=== PATIENT | male | born 1960 | race Two or more races ===

== ENCOUNTER 2023-08-18 19:02 | Inpatient (IN) | payer MEDICAID, OTHER ==
[~2023-08-18] VITALS: Ht 170.2 cm; Wt 58.1 kg
[2023-08-18 20:18] LABS: Hematocrit 51.6 % (41.0-53.0); Mean Corpuscular Hemoglobin 29.3 pg (28.0-32.0); Mean Corpuscular Hgb Conc. 32.9 g/dL (32.0-36.0); Mean Corpuscular Volume 89.1 fL (80.0-100.0); Platelet Count (auto) 330 10^3/uL (140-450); Red Cell Distribution Width 15.6 % (11.8-14.3); White Blood Cell 18.2 10^3/uL (4.4-10.8)
[2023-08-18 20:25] LABS: Basophils % (manual) 0 (0.0-2.0); Blast Cells 0; Eosinophils % (manual) 0 (0-7); Metamyelocytes % 0; Myelocytes % 0; Promyelocytes % 0; Reactive Lymphocytes 0
[2023-08-18 20:43] LABS: Alanine Aminotransferase 35 U/L (7-40); Albumin 4.2 g/dL (3.2-4.8); Alkaline Phosphatase 111 U/L (46-116); Anion Gap 18 (5-15); Aspartate Aminotransferase 21 U/L (13-40); BUN/Creatinine Ratio 36.5 (10.0-20.0); Blood Urea Nitrogen 38 mg/dL (9-23); Calcium 9.1 mg/dL (8.7-10.4); Carbon Dioxide 15 mmol/L (20-30); Chloride 101 mmol/L (98-107); Glucose 353 mg/dL (74-106); Lipase 96 U/L (12-53); Potassium 3.8 mmol/L (3.5-5.1); Sodium 134 mmol/L (136-145)
[2023-08-18 20:44] LABS: Bilirubin, Total 0.5 mg/dL (0.2-1.0); Total Protein 7.3 g/dL (5.7-8.2)
[2023-08-18 21:00] VITALS: PULSE 137; RESP 22; O2SAT 93
[2023-08-18] MEDS: MORPHINE SULFATE 4 MG/ML SYR/VIAL IV ONE ×2 (21:07→22:50)
[2023-08-18] MEDS: ONDANSETRON HCL 4 MG/2 ML VIAL IV ONE ×2 (21:07→22:50)
[2023-08-18] MEDS: SODIUM CHLORIDE 0.9% 1,000 ML IV ONE ×2 (21:11→23:08)
[2023-08-18 22:06] LABS: Band Neutrophils % (manual) 10; Lymphocytes % (manual) 4 (10.0-50.0); Monocytes % (manual) 3 (0-12); Platelet Estimate Adequate
[2023-08-18] MEDS: IOHEXOL 350 MG/ML 100ML IJ ONE (22:06)
[2023-08-18 22:39] LABS: Lactic Acid w/Reflex 6.3 mmol/L (0.4-2.0)
[2023-08-18] MEDS ORDERED: VANCOMYCIN PER PHARMACY 0 MG IV SCH (23:00)
[2023-08-18] MEDS: VANCOMYCIN 1GM/200ML 200 ML IV ONE (23:08)
[2023-08-18] MEDS ORDERED: MORPHINE SULFATE INJ 2 MG/ml SYRG IV PRN ×2 (23:15)
[2023-08-18] MEDS ORDERED: NITROGLYCERIN 0.4 MG SL TAB SL PRN (23:15)
[2023-08-18] MEDS ORDERED: ONDANSETRON HCL 4 MG/2 ML VIAL IV PRN (23:15)
[2023-08-18 23:30] LABS: Urine Bacteria FEW /hpf (None Seen); Urine Blood Negative /uL (Negative); Urine Budding Yeast OCCASIONAL /hpf (None Seen); Urine Clarity Clear (Clear); Urine Color Light-Yellow (Yellow); Urine Hyaline Cast MANY /lpf (0 - 2); Urine Protein, UAD TRACE (Negative); Urine Specific Gravity 1.031 (1.001-1.035); Urine Urobilinogen Normal (Negative); Urine WBC 3 /hpf (0 - 3); Urine pH 5.5 (5.0-9.0)
[2023-08-18] MEDS ORDERED: VANCOMYCIN HCL 1000 MG VL IV ONE (23:45)
[2023-08-18] MEDS: SODIUM CHLORIDE 0.9% 1,000 ML IV SCH (23:48)
[2023-08-19] VITALS (79 sets, daily range): BP systolic 104–143; BP diastolic 68–98; PULSE 102–146; RESP 16–29; TEMP 98.8–103.3; O2SAT 95–100
[2023-08-19 00:12] LABS: INR 1.32 (0.9-1.15); Partial Thromboplastin Time 25.5 SEC (24.5-34.5); Prothrombin Time 13.7 sec (9.3-11.8)
[2023-08-19] MEDS: metroNIDAZOLE 500MG/100ML 100 ML IV SCH ×2 (00:55→10:02)
[2023-08-19] MEDS: HYDROmorphone HCL 2 MG/ML VL/or syr IV ONE ×2 (01:01→05:30)
[2023-08-19] MEDS: PANTOPRAZOLE 40 MG/10 ML VIAL INJ IV ONE (01:22)
[2023-08-19] MEDS: MIDAZOLAM DRIP 50 mg/50mL 50 ML IV SCH ×2 (03:00→16:30)
[2023-08-19] MEDS: NOREPINEPHRINE 8 MG/250ML KIT 250 ML IV SCH (03:00)
[2023-08-19] MEDS: MIDAZOLAM DRIP 50 mg/50mL 50 ML IV ONE (03:10)
[2023-08-19] MEDS: MIDAZOLAM HCL 2MG/2ML 2ml VIAL (1mg/ml) ONE (03:11)
[2023-08-19] MEDS: NOREPINEPHRINE 8 MG/250ML KIT 250 ML IV ONE (03:11)
[2023-08-19 03:17] LABS: Basophils # (auto) 0 10 ^3/uL (0-0.2); Basophils % (auto) 0.1 % (0.0-2.0); Eosinophils # (auto) 0 10 ^3/uL (0-0.8); Eosinophils % (auto) 0.2 % (0.0-7.0); Hematocrit 46.2 % (41.0-53.0); Hemoglobin 14.4 g/dL (13.5-17.5); Lymphocytes # (auto) 0.9 10 ^3/uL (0.4-5.4); Lymphocytes % (auto) 12.3 % (10.0-50.0); Mean Corpuscular Hemoglobin 29.6 pg (28.0-32.0); Mean Corpuscular Hgb Conc. 31.1 g/dL (32.0-36.0); Mean Corpuscular Volume 95.2 fL (80.0-100.0); Monocytes # (auto) 0.8 10 ^3/uL (0-1.3); Monocytes % (auto) 10.3 % (0.0-12.0); Neutrophils # (auto) 5.7 10 ^3/uL (1.6-8.6); Neutrophils % (auto) 77.1 % (37.0-80.0); Nucleated Red Blood Cells % 0.1 %; Platelet Count (auto) 286 10^3/uL (140-450); Red Blood Cells 4.86 10^6/uL (4.5-5.90); Red Cell Distribution Width 16.7 % (11.8-14.3); White Blood Cell 7.4 10^3/uL (4.4-10.8)
[2023-08-19 03:33] LABS: Alanine Aminotransferase 197 U/L (7-40); Albumin 3.1 g/dL (3.2-4.8); Alkaline Phosphatase 85 U/L (46-116); Anion Gap 22.00001 (5-15); Aspartate Aminotransferase 184 U/L (13-40); BUN/Creatinine Ratio 25.5 (10.0-20.0); Bilirubin, Total 0.3 mg/dL (0.2-1.0); Blood Urea Nitrogen 47 mg/dL (9-23); Calcium 7.9 mg/dL (8.7-10.4); Chloride 107 mmol/L (98-107); Potassium 4.6 mmol/L (3.5-5.1); Sodium 139 mmol/L (136-145); Total Protein 5.4 g/dL (5.7-8.2)
[2023-08-19] MEDS ORDERED: ETOMIDATE (2MG/ML) 20ML VIAL IV ONE (03:38)
[2023-08-19] MEDS ORDERED: fentaNYL CITRATE 5 ML ONE (03:38)
[2023-08-19] MEDS ORDERED: ROCURONIUM 10MG/ML 10ML VIAL IV ONE ×2 (03:38→05:29)
[2023-08-19] MEDS ORDERED: LIDOCAINE HCL 2% TOP JELLY 5ML TOP ONE (03:38)
[2023-08-19] MEDS ORDERED: fentaNYL CITRATE 100 MCG/2 ML VL ONE (03:38)
[2023-08-19] MEDS ORDERED: DexAMETHasone SOD PHOS 10MG/1ML VIAL INJ ONE (03:38)
[2023-08-19] MEDS ORDERED: LIDOCAINE 1% INJ PF 5ML AMP ONE (03:38)
[2023-08-19] MEDS ORDERED: ONDANSETRON HCL 4 MG/2 ML VIAL ONE (03:38)
[2023-08-19] MEDS ORDERED: MIDAZOLAM HCL 2MG/2ML 2ml VIAL (1mg/ml) ONE (03:38)
[2023-08-19] MEDS ORDERED: KETAMINE 50mg/ML 1ml syringe ONE (03:38)
[2023-08-19] MEDS ORDERED: MEPERIDINE HCL (50 MG/ML) 1 ML VIAL ONE ×2 (03:38→05:16)
[2023-08-19 03:39] LABS: Carbon Dioxide < 10 mmol/L (20-30); Glucose 513 mg/dL (74-106)
[2023-08-19 03:50] LABS: INR 1.42 (0.9-1.15); Partial Thromboplastin Time 34.5 SEC (24.5-34.5); Prothrombin Time 14.7 sec (9.3-11.8)
[2023-08-19] MEDS: SODIUM CHLORIDE 0.9% 1,000 ML IV SCH ×2 (04:15→08:15)
[2023-08-19] MEDS ORDERED: DEXTROSE (50%) 50ML SYRG IV PRN ×3 (04:15→17:30)
[2023-08-19 04:35] LABS: Magnesium 2.4 mg/dL (1.6-2.6)
[2023-08-19 04:36] LABS: Phosphorus 10.2 mg/dL (2.4-5.1)
[2023-08-19] MEDS: POVIDONE IODINE 10 % TOPICAL OINT 30GM TOP ONE (05:12)
[2023-08-19] MEDS: ALBUMIN 5% 250 ML IV ONE ×2 (05:23→06:20)
[2023-08-19] MEDS ORDERED: MORPHINE SULFATE INJ 2 MG/ml SYRG IV PRN (05:30)
[2023-08-19] MEDS ORDERED: LACTATED RINGER'S 1,000 ML IV SCH (05:30)
[2023-08-19] MEDS ORDERED: ONDANSETRON HCL 4 MG/2 ML VIAL IV PRN (05:30)
[2023-08-19] MEDS: ACCU-CHEK COMFORT CURVE STRIP VI SCH ×3 (06:00→20:54)
[2023-08-19] MEDS: ALBUMIN 25% 100 ML IV ONE ×2 (06:20→06:42)
[2023-08-19] MEDS: INSULIN DRIP 100 UNIT/100ML 100 ML IV SCH ×2 (06:22→09:02)
[2023-08-19] MEDS: PHENYLEPHRINE IV 250 ML IV SCH (06:23)
[2023-08-19 06:29] LABS: Basophils # (auto) 0 10 ^3/uL (0-0.2); Basophils % (auto) 0.1 % (0.0-2.0); Eosinophils # (auto) 0 10 ^3/uL (0-0.8); Eosinophils % (auto) 0.2 % (0.0-7.0); Hemoglobin 12.4 g/dL (13.5-17.5); Lymphocytes # (auto) 0.4 10 ^3/uL (0.4-5.4); Lymphocytes % (auto) 11.8 % (10.0-50.0); Mean Corpuscular Hemoglobin 30.1 pg (28.0-32.0); Mean Corpuscular Hgb Conc. 31.6 g/dL (32.0-36.0); Mean Corpuscular Volume 95.2 fL (80.0-100.0); Monocytes # (auto) 0.4 10 ^3/uL (0-1.3); Monocytes % (auto) 12.3 % (0.0-12.0); Neutrophils # (auto) 2.6 10 ^3/uL (1.6-8.6); Neutrophils % (auto) 75.6 % (37.0-80.0); Nucleated Red Blood Cells % 0.2 %; Platelet Count (auto) 208 10^3/uL (140-450); Red Cell Distribution Width 16.3 % (11.8-14.3); White Blood Cell 3.4 10^3/uL (4.4-10.8)
[2023-08-19] MEDS: MEROPENEM 1GM IVPB 50 ML IV SCH (06:36)
[2023-08-19] MEDS: ALBUMIN 25% 50 ML IV SCH (06:37)
[2023-08-19] MEDS: INSULIN LANTUS (GLARGINE) 1 /0.01ml (100units/ml) SC ONE ×2 (06:37→09:30)
[2023-08-19 06:38] LABS: INR 1.49 (0.9-1.15); Partial Thromboplastin Time 32.6 SEC (24.5-34.5); Prothrombin Time 15.3 sec (9.3-11.8)
[2023-08-19 06:45] LABS: Alanine Aminotransferase 243 U/L (7-40); Albumin 3.4 g/dL (3.2-4.8); Alkaline Phosphatase 63 U/L (46-116); Anion Gap 18 (5-15); Aspartate Aminotransferase 230 U/L (13-40); Blood Urea Nitrogen 41 mg/dL (9-23); Calcium 7.3 mg/dL (8.5-10.1); Carbon Dioxide 11 mmol/L (20-30); Chloride 111 mmol/L (98-107); Potassium 4.6 mmol/L (3.5-5.1); Sodium 140 mmol/L (136-145)
[2023-08-19 06:46] LABS: Bilirubin, Total 0.2 mg/dL (0.2-1.0); Total Protein 5.1 g/dL (5.7-8.2)
[2023-08-19 06:49] LABS: Glucose 448 mg/dL (74-106)
[2023-08-19] MEDS: SOD CHL 0.45% WITH 20MEQ KCL 1,000 ML IV SCH (07:08)
[2023-08-19] MEDS: ceFAZolin 2 GM/D5W50ml 50 ML IV SCH (09:02)
[2023-08-19] MEDS: SODIUM BICARB 50mEq/50ml Vial 100 ML in SOD CHL 0.45% 1,000 ML IV SCH ×2 (09:14→17:30)
[2023-08-19] MEDS ORDERED: PANTOPRAZOLE 40 MG/10 ML VIAL INJ IV SCH (10:00)
[2023-08-19] MEDS: PANTOPRAZOLE 40 MG/10 ML VIAL INJ IV SCH (10:01)
[2023-08-19] MEDS ORDERED: SODIUM CHLORIDE 0.9% 1,000 ML IV SCH (10:15)
[2023-08-19 10:38] LABS: Amphetamine Screen, Urine Neg (NEGATIVE)
[2023-08-19 10:39] LABS: Barbiturate Scree,Urine Neg (NEGATIVE)
[2023-08-19 10:40] LABS: Benzodiazephine Screen, Urine Neg (NEGATIVE); Cannabinoid Screen, Urine Neg (NEGATIVE); Cocaine Screen, Urine Neg (NEGATIVE); Opiate Scree,Urine Neg (NEGATIVE); Phencyclidine Screen, Urine Neg (NEGATIVE)
[2023-08-19 11:00] LABS: Chloride 116 mmol/L (98-107); Sodium 144 mmol/L (136-145)
[2023-08-19] MEDS ORDERED: VANCOMYCIN 500 MG in D5W 5% 100 ML IV SCH (11:00)
[2023-08-19 11:01] LABS: Anion Gap 8 (5-15); Calcium 7.6 mg/dL (8.5-10.1); Carbon Dioxide 20 mmol/L (20-30)
[2023-08-19 11:06] LABS: BUN/Creatinine Ratio 26.9 (10.0-20.0)
[2023-08-19 11:07] LABS: Blood Urea Nitrogen 54 mg/dL (9-23); Glucose 240 mg/dL (74-106)
[2023-08-19] MEDS: ACETAMINOPHEN IV 1000 MG/100ML (10MG/ML) IV ONE (11:27)
[2023-08-19 12:05] LABS: Base Excess -10.3 mmol/L (-2.0-2.0)
[2023-08-19] MEDS: PANTOPRAZOLE 40mg/50ML NS AE 50 ML IV SCH (12:30)
[2023-08-19] MEDS ORDERED: LISI-275 PO (13:58)
[2023-08-19] MEDS ORDERED: GLIP-110 PO (13:58)
[2023-08-19] MEDS ORDERED: ERTU15TA PO (13:58)
[2023-08-19] MEDS ORDERED: ATOR20TA50 PO (13:58)
[2023-08-19] MEDS ORDERED: PANT40TA2 PO (13:58)
[2023-08-19] MEDS ORDERED: FAMO-12 PO (13:58)
[2023-08-19] MEDS ORDERED: METF-370 PO (13:58)
[2023-08-19] MEDS: VANCOMYCIN 500 MG in D5W 5% 100 ML IV SCH (14:00)
[2023-08-19] MEDS ORDERED: INSULIN DRIP 100 UNIT/100ML 100 ML IV SCH (15:00)
[2023-08-19] MEDS: fentaNYL Drip 2500mCg/250mlNS 250 ML IV SCH (16:00)
[2023-08-19 20:24] LABS: Chloride 118 mmol/L (98-107); Potassium 4.8 mmol/L (3.5-5.1); Sodium 146 mmol/L (136-145)
[2023-08-19 20:25] LABS: Anion Gap 14 (5-15); Carbon Dioxide 14 mmol/L (20-30)
[2023-08-19 20:30] LABS: BUN/Creatinine Ratio 21.6 (10.0-20.0); Glucose 162 mg/dL (74-106)
[2023-08-19 20:34] LABS: Blood Urea Nitrogen 41 mg/dL (9-23)
[2023-08-19] MEDS: InsuLIN REG 1unit/0.01ml Soln (100units/ml) SC SCH (21:04)
[2023-08-19] MEDS ORDERED: EPINEPHrine HCL 1 MG/10 ML SYRG IV ONE (21:44)
[2023-08-19] MEDS: CEFEPIME 2GM/50ML NS 50 ML IV SCH (22:39)
[2023-08-20] VITALS (104 sets, daily range): BP systolic 101–127; BP diastolic 67–83; PULSE 89–109; RESP 16–22; TEMP 42.6; O2SAT 95–99
[2023-08-20 04:41] LABS: Basophils # (auto) 0 10 ^3/uL (0-0.2); Basophils % (auto) 0.2 % (0.0-2.0); Eosinophils # (auto) 0 10 ^3/uL (0-0.8); Hematocrit 35.7 % (41.0-53.0); Lymphocytes # (auto) 0.5 10 ^3/uL (0.4-5.4); Lymphocytes % (auto) 6.5 % (10.0-50.0); Mean Corpuscular Hemoglobin 29.7 pg (28.0-32.0); Mean Corpuscular Hgb Conc. 33.7 g/dL (32.0-36.0); Mean Corpuscular Volume 88.2 fL (80.0-100.0); Monocytes # (auto) 0.5 10 ^3/uL (0-1.3); Monocytes % (auto) 5.8 % (0.0-12.0); Neutrophils # (auto) 6.9 10 ^3/uL (1.6-8.6); Neutrophils % (auto) 87.5 % (37.0-80.0); Platelet Count (auto) 183 10^3/uL (140-450); Red Blood Cells 4.04 10^6/uL (4.5-5.90); Red Cell Distribution Width 15.9 % (11.8-14.3); White Blood Cell 7.9 10^3/uL (4.4-10.8)
[2023-08-20 04:59] LABS: Alanine Aminotransferase 284 U/L (7-40); Albumin 3.5 g/dL (3.2-4.8); Alkaline Phosphatase 64 U/L (46-116); Anion Gap 11 (5-15); Aspartate Aminotransferase 254 U/L (13-40); BUN/Creatinine Ratio 27.3 (10.0-20.0); Carbon Dioxide 20 mmol/L (20-30); Chloride 117 mmol/L (98-107); Glucose 180 mg/dL (74-106); Magnesium 2.3 mg/dL (1.6-2.6); Potassium 4.3 mmol/L (3.5-5.1); Sodium 148 mmol/L (136-145)
[2023-08-20 05:00] LABS: Bilirubin, Total 0.4 mg/dL (0.2-1.0); Total Protein 5.4 g/dL (5.7-8.2)
[2023-08-20 05:05] LABS: Blood Urea Nitrogen 53 mg/dL (9-23)
[2023-08-20] MEDS ORDERED: TPN PER PHARMACY 0 ML IV SCH (08:15)
[2023-08-20 08:25] LABS: Base Excess -5.7 mmol/L (-2.0-2.0)
[2023-08-20] MEDS: INSULIN LANTUS (GLARGINE) 1 /0.01ml (100units/ml) SC SCH (10:00)
[2023-08-20 11:01] LABS: Hematocrit 35.8 % (41.0-53.0)
[2023-08-20] MEDS: SOD CHL 0.45% 1,000 ML IV SCH (11:30)
[2023-08-20] MEDS ORDERED: TPN PER PHARMACY IV NR (20:00)
[2023-08-20] MEDS: TPN PER PHARMACY IV NR (20:25)
[2023-08-20 22:26] LABS: Hematocrit 32.7 % (41.0-53.0); Hemoglobin 10.8 g/dL (13.5-17.5)
[2023-08-21] VITALS (102 sets, daily range): BP systolic 105–192; BP diastolic 67–102; PULSE 97–129; RESP 13–28; TEMP 77–100; O2SAT 91–100
[2023-08-21 04:16] LABS: Basophils # (auto) 0 10 ^3/uL (0-0.2); Basophils % (auto) 0.2 % (0.0-2.0); Eosinophils # (auto) 0 10 ^3/uL (0-0.8); Hemoglobin 10.4 g/dL (13.5-17.5); Lymphocytes # (auto) 0.5 10 ^3/uL (0.4-5.4); Mean Corpuscular Hemoglobin 29.4 pg (28.0-32.0); Mean Corpuscular Hgb Conc. 33.5 g/dL (32.0-36.0); Mean Corpuscular Volume 87.9 fL (80.0-100.0); Monocytes # (auto) 0.4 10 ^3/uL (0-1.3); Monocytes % (auto) 6.5 % (0.0-12.0); Neutrophils % (auto) 86.3 % (37.0-80.0); Platelet Count (auto) 162 10^3/uL (140-450); Red Blood Cells 3.52 10^6/uL (4.5-5.90); Red Cell Distribution Width 16.2 % (11.8-14.3); White Blood Cell 6.9 10^3/uL (4.4-10.8)
[2023-08-21 04:36] LABS: Alanine Aminotransferase 382 U/L (7-40); Alkaline Phosphatase 71 U/L (46-116); Anion Gap 9 (5-15); BUN/Creatinine Ratio 26.6 (10.0-20.0); Blood Urea Nitrogen 57 mg/dL (9-23); Calcium 8.2 mg/dL (8.5-10.1); Carbon Dioxide 22 mmol/L (20-30); Chloride 118 mmol/L (98-107); Glucose 219 mg/dL (74-106); Magnesium 2.4 mg/dL (1.6-2.6); Potassium 4.1 mmol/L (3.5-5.1); Sodium 149 mmol/L (136-145); Triglycerides 185 mg/dL (< 150)
[2023-08-21 04:37] LABS: Albumin 3.2 g/dL (3.2-4.8)
[2023-08-21 04:38] LABS: Aspartate Aminotransferase 248 U/L (13-40); Bilirubin, Total 0.3 mg/dL (0.2-1.0); Phosphorus 2.9 mg/dL (2.4-5.1); Total Protein 5.2 g/dL (5.7-8.2)
[2023-08-21] MEDS: VANCOMYCIN 1GM/200ML 200 ML IV SCH (06:46)
[2023-08-21] MEDS: D5W 5% 1,000 ML IV SCH (07:00)
[2023-08-21 07:27] LABS: Base Excess -4.7 mmol/L (-2.0-2.0)
[2023-08-21 10:14] LABS: Base Excess -3.9 mmol/L (-2.0-2.0)
[2023-08-21 10:46] LABS: Hematocrit 31.3 % (41.0-53.0); Hemoglobin 10.4 g/dL (13.5-17.5)
[2023-08-21] MEDS: MORPHINE SULFATE INJ 2 MG/ml SYRG IV PRN (13:57)
[2023-08-21] MEDS: TPN PER PHARMACY IV NR (19:59)
[2023-08-21 21:58] LABS: Hematocrit 31.2 % (41.0-53.0); Hemoglobin 10.1 g/dL (13.5-17.5)
[2023-08-21] MEDS: hydrALAZINE HCL 20 MG/ML VL IV PRN (22:21)
[2023-08-22] VITALS (17 sets, daily range): BP systolic 98–199; BP diastolic 65–104; PULSE 91–128; RESP 15–38; TEMP 97.1–99.7; O2SAT 91–100
[2023-08-22] MEDS: LORazepam 2MG/ML-1ML VIAL IV PRN (00:56)
[2023-08-22] MEDS: LABETALOL HCL 5 MG/ML 4ML SYRINGE IV ONE (01:15)
[2023-08-22 04:19] LABS: Basophils # (auto) 0 10 ^3/uL (0-0.2); Basophils % (auto) 0.1 % (0.0-2.0); Eosinophils # (auto) 0 10 ^3/uL (0-0.8); Hematocrit 29.1 % (41.0-53.0); Hemoglobin 9.6 g/dL (13.5-17.5); Lymphocytes # (auto) 0.6 10 ^3/uL (0.4-5.4); Lymphocytes % (auto) 3.9 % (10.0-50.0); Mean Corpuscular Hemoglobin 28.8 pg (28.0-32.0); Mean Corpuscular Volume 87.1 fL (80.0-100.0); Monocytes % (auto) 7.2 % (0.0-12.0); Neutrophils # (auto) 12.9 10 ^3/uL (1.6-8.6); Neutrophils % (auto) 88.8 % (37.0-80.0); Nucleated Red Blood Cells % 0.1 %; Platelet Count (auto) 171 10^3/uL (140-450); Red Blood Cells 3.34 10^6/uL (4.5-5.90); Red Cell Distribution Width 15.8 % (11.8-14.3); White Blood Cell 14.5 10^3/uL (4.4-10.8)
[2023-08-22 04:33] LABS: Alanine Aminotransferase 590 U/L (7-40); Albumin 3.2 g/dL (3.2-4.8); Alkaline Phosphatase 84 U/L (46-116); Anion Gap 11 (5-15); Aspartate Aminotransferase 338 U/L (13-40); BUN/Creatinine Ratio 27.2 (10.0-20.0); Blood Urea Nitrogen 55 mg/dL (9-23); Calcium 8.5 mg/dL (8.7-10.4); Carbon Dioxide 19 mmol/L (20-30); Chloride 123 mmol/L (98-107); Glucose 188 mg/dL (74-106); Magnesium 2.4 mg/dL (1.6-2.6); Potassium 3.3 mmol/L (3.5-5.1); Sodium 153 mmol/L (136-145)
[2023-08-22 04:34] LABS: Bilirubin, Total 0.5 mg/dL (0.2-1.0); Phosphorus 1.6 mg/dL (2.4-5.1); Total Protein 5.6 g/dL (5.7-8.2)
[2023-08-22] MEDS: D5W 5% 1,000 ML IV SCH (08:45)
[2023-08-22] MEDS: POTASSIUM PHOSPHATE 22 MEQ in SODIUM CHL 0.9% 100 ML IV ONE (10:15)
[2023-08-22 10:17] LABS: Hemoglobin 9.9 g/dL (13.5-17.5)
[2023-08-22] MEDS: TPN PER PHARMACY IV NR (20:00)
[2023-08-22] MEDS: PANTOPRAZOLE 40mg/50ML NS AE 50 ML IV SCH (20:49)
[2023-08-22] MEDS ORDERED: PANTOPRAZOLE 40 MG/10 ML VIAL INJ IV SCH ×2 (22:00)
[2023-08-22 23:13] LABS: Hematocrit 30.4 % (41.0-53.0); Hemoglobin 9.7 g/dL (13.5-17.5)
[2023-08-23] VITALS (51 sets, daily range): BP systolic 117–170; BP diastolic 42–138; PULSE 94–125; RESP 16–37; TEMP 97.8–99.2; O2SAT 82–100
[2023-08-23 03:58] LABS: Basophils # (auto) 0 10 ^3/uL (0-0.2); Basophils % (auto) 0.1 % (0.0-2.0); Eosinophils # (auto) 0 10 ^3/uL (0-0.8); Hematocrit 28.1 % (41.0-53.0); Hemoglobin 9.2 g/dL (13.5-17.5); Lymphocytes # (auto) 0.7 10 ^3/uL (0.4-5.4); Lymphocytes % (auto) 3.8 % (10.0-50.0); Mean Corpuscular Hemoglobin 28.8 pg (28.0-32.0); Mean Corpuscular Hgb Conc. 32.7 g/dL (32.0-36.0); Mean Corpuscular Volume 88.2 fL (80.0-100.0); Monocytes # (auto) 1.4 10 ^3/uL (0-1.3); Monocytes % (auto) 7.6 % (0.0-12.0); Neutrophils # (auto) 16.5 10 ^3/uL (1.6-8.6); Neutrophils % (auto) 88.5 % (37.0-80.0); Platelet Count (auto) 211 10^3/uL (140-450); Red Blood Cells 3.18 10^6/uL (4.5-5.90); Red Cell Distribution Width 16.4 % (11.8-14.3); White Blood Cell 18.7 10^3/uL (4.4-10.8)
[2023-08-23 04:22] LABS: Alanine Aminotransferase 814 U/L (7-40); Albumin 3.3 g/dL (3.2-4.8); Alkaline Phosphatase 95 U/L (46-116); Anion Gap 14 (5-15); Aspartate Aminotransferase 377 U/L (13-40); Blood Urea Nitrogen 64 mg/dL (9-23); Calcium 8.5 mg/dL (8.5-10.1); Carbon Dioxide 18 mmol/L (20-30); Chloride 124 mmol/L (98-107); Glucose 245 mg/dL (74-106); Magnesium 2.6 mg/dL (1.6-2.6); Potassium 3.4 mmol/L (3.5-5.1); Sodium 156 mmol/L (136-145)
[2023-08-23 04:23] LABS: Base Excess -2.4 mmol/L (-2.0-2.0)
[2023-08-23 04:23] LABS: Bilirubin, Total 0.5 mg/dL (0.2-1.0); Phosphorus 1.7 mg/dL (2.4-5.1); Total Protein 5.8 g/dL (5.7-8.2)
[2023-08-23 08:56] LABS: Lipase 174 U/L (12-53)
[2023-08-23 08:58] LABS: Amylase 418 U/L (30-118)
[2023-08-23] MEDS: POTASSIUM PHOSPHATE 26.4 MEQ in SODIUM CHL 0.9% 100 ML IV ONE (09:15)
[2023-08-23 10:23] LABS: Hematocrit 24.2 % (41.0-53.0)
[2023-08-23] MEDS: THIAMINE 100mg/ml INJ (200mg/2ml VIAL) IV ONE (16:28)
[2023-08-23] MEDS: FOLIC ACID 1 MG in D5W 5% 50 ML INJ ONE (16:29)
[2023-08-23 18:47] LABS: % Iron Saturation 15.3 % (20-55)
[2023-08-23] MEDS: TPN PER PHARMACY IV NR (20:00)
[2023-08-23 20:35] LABS: Chloride 128 mmol/L (98-107); Potassium 3.4 mmol/L (3.5-5.1)
[2023-08-23 20:36] LABS: Anion Gap 14 (5-15); Calcium 8.6 mg/dL (8.5-10.1); Carbon Dioxide 19 mmol/L (20-30)
[2023-08-23 20:41] LABS: BUN/Creatinine Ratio 39.7 (10.0-20.0); Blood Urea Nitrogen 79 mg/dL (9-23); Glucose 162 mg/dL (74-106)
[2023-08-23 21:19] LABS: Sodium 161 mmol/L (136-145)
[2023-08-23 22:06] LABS: Hematocrit 24.2 % (41.0-53.0); Hemoglobin 7.8 g/dL (13.5-17.5)
[2023-08-23] MEDS: LORazepam 2MG/ML-1ML VIAL IV PRN (22:33)
[2023-08-23 22:58] LABS: Urine Bacteria FEW /hpf (None Seen); Urine Blood 2+ /uL (Negative); Urine Clarity Clear (Clear); Urine Color Light-Yellow (Yellow); Urine Mucus FEW (None Seen); Urine Protein, UAD 1+ (Negative); Urine Specific Gravity 1.014 (1.001-1.035); Urine Urobilinogen Normal (Negative); Urine WBC 7 /hpf (0 - 3); Urine pH 5.5 (5.0-9.0)
[2023-08-23 23:06] LABS: Amphetamine Screen, Urine Neg (NEGATIVE); Barbiturate Scree,Urine Neg (NEGATIVE); Benzodiazephine Screen, Urine Pos (NEGATIVE); Cocaine Screen, Urine Neg (NEGATIVE); Opiate Scree,Urine Neg (NEGATIVE); Phencyclidine Screen, Urine Neg (NEGATIVE)
[2023-08-23 23:07] LABS: Cannabinoid Screen, Urine Neg (NEGATIVE); Creatinine, Urine 50.51 mg/dL (30.0-125.0)
[2023-08-24] VITALS (23 sets, daily range): BP systolic 114–155; BP diastolic 25–85; PULSE 96–128; RESP 17–27; TEMP 97.8–99.8; O2SAT 82–100
[2023-08-24] MEDS: MORPHINE SULFATE INJ 2 MG/ml SYRG IV PRN (01:53)
[2023-08-24 05:22] LABS: Hematocrit 23.2 % (41.0-53.0); Hemoglobin 7.5 g/dL (13.5-17.5); Mean Corpuscular Hemoglobin 29.1 pg (28.0-32.0); Mean Corpuscular Hgb Conc. 32.4 g/dL (32.0-36.0); Mean Corpuscular Volume 89.7 fL (80.0-100.0); Platelet Count (auto) 268 10^3/uL (140-450); Red Blood Cells 2.59 10^6/uL (4.5-5.90); Red Cell Distribution Width 16.5 % (11.8-14.3); White Blood Cell 21.8 10^3/uL (4.4-10.8)
[2023-08-24 05:30] LABS: Basophils % (manual) 0 (0.0-2.0); Blast Cells 0; Eosinophils % (manual) 0 (0-7); Promyelocytes % 0; Reactive Lymphocytes 0
[2023-08-24 05:33] LABS: Alanine Aminotransferase 645 U/L (7-40); Albumin 3.4 g/dL (3.2-4.8); Alkaline Phosphatase 105 U/L (46-116); Anion Gap 15 (5-15); Aspartate Aminotransferase 182 U/L (13-40); BUN/Creatinine Ratio 35.8 (10.0-20.0); Blood Urea Nitrogen 78 mg/dL (9-23); Calcium 8.4 mg/dL (8.5-10.1); Carbon Dioxide 18 mmol/L (20-30); Chloride 129 mmol/L (98-107); Glucose 230 mg/dL (74-106); Magnesium 2.4 mg/dL (1.6-2.6); Potassium 3.2 mmol/L (3.5-5.1)
[2023-08-24 05:34] LABS: Bilirubin, Total 0.5 mg/dL (0.2-1.0); Phosphorus 3.4 mg/dL (2.4-5.1); Total Protein 5.9 g/dL (5.7-8.2)
[2023-08-24 05:49] LABS: Sodium 162 mmol/L (136-145)
[2023-08-24 07:00] LABS: Band Neutrophils % (manual) 2; Lymphocytes % (manual) 7 (10.0-50.0); Metamyelocytes % 1; Monocytes % (manual) 10 (0-12); Myelocytes % 1
[2023-08-24 07:01] LABS: Anisocytosis Slight; Platelet Estimate Adequate
[2023-08-24] MEDS: D5W 5% 1,000 ML IV SCH (07:29)
[2023-08-24] MEDS: POTASSIUM CHL 20MEQ/100ML 100 ML IV ONE (08:15)
[2023-08-24] MEDS: HALOPERIDOL LACTATE 5 MG/ML INJ VIAL IM ONE (10:37)
[2023-08-24] MEDS: FREE WATER GT SCH (10:51)
[2023-08-24] MEDS: THIAMINE 100mg/ml INJ (200mg/2ml VIAL) IV SCH (10:51)
[2023-08-24] MEDS: FOLIC ACID 1 MG in D5W 5% 50 ML INJ SCH (10:51)
[2023-08-24] MEDS: INSULIN LANTUS (GLARGINE) 1 /0.01ml (100units/ml) SC SCH (10:56)
[2023-08-24] MEDS ORDERED: Jevity 1.2 Cal/Fiber 1 Liter GT SCH (14:15)
[2023-08-24] MEDS: METOCLOPRAMIDE HCL 5MG/ml INJ 2ml VIAL IV ONE (15:42)
[2023-08-24] MEDS: DOCUSATE ORAL LIQUID 100 MG/10 ML UD GT ONE (15:43)
[2023-08-24 16:42] LABS: Chloride 132 mmol/L (98-107); Potassium 3.5 mmol/L (3.5-5.1); Sodium 160 mmol/L (136-145)
[2023-08-24 16:43] LABS: Anion Gap 10 (5-15); Calcium 8.4 mg/dL (8.5-10.1); Carbon Dioxide 18 mmol/L (20-30)
[2023-08-24 16:48] LABS: Blood Urea Nitrogen 77 mg/dL (9-23); Glucose 159 mg/dL (74-106)
[2023-08-24] MEDS: PPN PER PHARMACY IV NR (21:37)
[2023-08-24] MEDS: METOCLOPRAMIDE HCL 5MG/ml INJ 2ml VIAL IV SCH (22:00)
[2023-08-24] MEDS: ONDANSETRON HCL 4 MG/2 ML VIAL IV PRN (22:28)
[2023-08-24] MEDS: ONDANSETRON HCL 4 MG/2 ML VIAL ONE (22:28)
[2023-08-25] VITALS (30 sets, daily range): BP systolic 98–157; BP diastolic 36–75; PULSE 86–130; RESP 13–30; TEMP 98–99.9; O2SAT 77–100
[2023-08-25] MEDS: MIDAZOLAM DRIP 50 mg/50mL 50 ML IV SCH (00:10)
[2023-08-25] MEDS: fentaNYL Drip 2500mCg/250mlNS 250 ML IV SCH (00:10)
[2023-08-25 07:06] LABS: Alanine Aminotransferase 382 U/L (7-40); Alkaline Phosphatase 98 U/L (46-116); Anion Gap 11 (5-15); Aspartate Aminotransferase 69 U/L (13-40); BUN/Creatinine Ratio 28.3 (10.0-20.0); Bilirubin, Total 0.4 mg/dL (0.2-1.0); Calcium 7.9 mg/dL (8.5-10.1); Carbon Dioxide 18 mmol/L (20-30); Chloride 126 mmol/L (98-107); Glucose 161 mg/dL (74-106); Phosphorus 3.9 mg/dL (2.4-5.1); Potassium 3.6 mmol/L (3.5-5.1); Total Protein 5.4 g/dL (5.7-8.2)
[2023-08-25 07:07] LABS: Magnesium 2.1 mg/dL (1.6-2.6)
[2023-08-25 07:09] LABS: Blood Urea Nitrogen 63 mg/dL (9-23); Sodium 155 mmol/L (136-145)
[2023-08-25] MEDS: D5W 5% 1,000 ML IV SCH (09:00)
[2023-08-25] MEDS: GASTROGRAFIN 120 ML SOL ONE (09:16)
[2023-08-25] MEDS: DOCUSATE ORAL LIQUID 100 MG/10 ML UD GT SCH (10:00)
[2023-08-25] MEDS ORDERED: LORazepam 2MG/ML-1ML VIAL IV PRN (13:15)
[2023-08-25] MEDS ORDERED: TPN PER PHARMACY 0 ML IV SCH (13:15)
[2023-08-25 13:18] LABS: Basophils # (auto) 0.1 10 ^3/uL (0-0.2); Basophils % (auto) 0.3 % (0.0-2.0); Eosinophils # (auto) 0.1 10 ^3/uL (0-0.8); Eosinophils % (auto) 0.6 % (0.0-7.0); Hematocrit 22.2 % (41.0-53.0); Lymphocytes # (auto) 1.2 10 ^3/uL (0.4-5.4); Lymphocytes % (auto) 4.7 % (10.0-50.0); Mean Corpuscular Hemoglobin 28.5 pg (28.0-32.0); Mean Corpuscular Hgb Conc. 28.6 g/dL (32.0-36.0); Mean Corpuscular Volume 99.8 fL (80.0-100.0); Monocytes # (auto) 1.9 10 ^3/uL (0-1.3); Monocytes % (auto) 7.8 % (0.0-12.0); Neutrophils # (auto) 21.3 10 ^3/uL (1.6-8.6); Neutrophils % (auto) 86.6 % (37.0-80.0); Nucleated Red Blood Cells % 0.1 %; Platelet Count (auto) 257 10^3/uL (140-450); Red Blood Cells 2.22 10^6/uL (4.5-5.90); Red Cell Distribution Width 18.4 % (11.8-14.3); White Blood Cell 24.5 10^3/uL (4.4-10.8)
[2023-08-25 13:34] LABS: Hemoglobin 6.3 g/dL (13.5-17.5)
[2023-08-25] MEDS: D5W/SOD CHL 0.45% 1,000 ML IV SCH (14:00)
[2023-08-25 16:16] LABS: INR 1.35 (0.9-1.15); Partial Thromboplastin Time 28.8 SEC (24.5-34.5)
[2023-08-25 17:00] LABS: Alanine Aminotransferase 343 U/L (7-40); Alkaline Phosphatase 103 U/L (46-116); Anion Gap 11 (5-15); Aspartate Aminotransferase 70 U/L (13-40); BUN/Creatinine Ratio 25.8 (10.0-20.0); Bilirubin, Total 0.4 mg/dL (0.2-1.0); Blood Urea Nitrogen 59 mg/dL (9-23); Calcium 8.2 mg/dL (8.7-10.4); Carbon Dioxide 17 mmol/L (20-30); Chloride 128 mmol/L (98-107); Glucose 214 mg/dL (74-106); Potassium 3.8 mmol/L (3.5-5.1); Sodium 156 mmol/L (136-145); Total Protein 5.7 g/dL (5.7-8.2)
[2023-08-25] MEDS: LIDOCAINE 2% (LOCAL ANESTH.) PF 5ml SDV ONE (19:39)
[2023-08-25] MEDS ORDERED: ETOMIDATE (2MG/ML) 20ML VIAL IV ONE (20:13)
[2023-08-25] MEDS ORDERED: ONDANSETRON HCL 4 MG/2 ML VIAL ONE (20:13)
[2023-08-25] MEDS ORDERED: LIDOCAINE 2% (LOCAL ANESTH.) PF 5ml SDV ONE (20:13)
[2023-08-25] MEDS ORDERED: fentaNYL CITRATE 100 MCG/2 ML VL ONE (20:13)
[2023-08-25] MEDS: ceFAZolin 2 GM/D5W50ml 50 ML IV ONE (20:14)
[2023-08-25] MEDS ORDERED: HYDROmorphone HCL 2 MG/ML VL/or syr ONE (22:02)
[2023-08-25] MEDS: MIDAZOLAM DRIP 50 mg/50mL 50 ML IV ONE (22:45)
[2023-08-25] MEDS: ONDANSETRON HCL 4 MG/2 ML VIAL IV ONE (23:00)
[2023-08-25] MEDS ORDERED: HYDROmorphone HCL 2 MG/ML VL/or syr IV PRN ×2 (23:00)
[2023-08-26] VITALS (109 sets, daily range): BP systolic 57–155; BP diastolic 35–80; PULSE 94–129; RESP 11–29; TEMP 98.3–100; O2SAT 84–100
[2023-08-26 00:34] LABS: Hematocrit 27.7 % (41.0-53.0); Hemoglobin 9.3 g/dL (13.5-17.5); Mean Corpuscular Hemoglobin 29.6 pg (28.0-32.0); Mean Corpuscular Hgb Conc. 33.7 g/dL (32.0-36.0); Mean Corpuscular Volume 87.9 fL (80.0-100.0); Platelet Count (auto) 255 10^3/uL (140-450); Red Blood Cells 3.15 10^6/uL (4.5-5.90); Red Cell Distribution Width 16.1 % (11.8-14.3); White Blood Cell 28.3 10^3/uL (4.4-10.8)
[2023-08-26 00:35] LABS: Basophils % (manual) 0 (0.0-2.0); Blast Cells 0; Eosinophils % (manual) 0 (0-7); Myelocytes % 0; Promyelocytes % 0; Reactive Lymphocytes 0
[2023-08-26 00:59] LABS: Alanine Aminotransferase 283 U/L (7-40); Albumin 2.9 g/dL (3.2-4.8); Alkaline Phosphatase 108 U/L (46-116); Anion Gap 10 (5-15); Aspartate Aminotransferase 59 U/L (13-40); BUN/Creatinine Ratio 24.4 (10.0-20.0); Bilirubin, Total 0.3 mg/dL (0.2-1.0); Blood Urea Nitrogen 53 mg/dL (9-23); Calcium 7.8 mg/dL (8.7-10.4); Carbon Dioxide 17 mmol/L (20-30); Chloride 129 mmol/L (98-107); Glucose 180 mg/dL (74-106); Potassium 4.2 mmol/L (3.5-5.1); Sodium 156 mmol/L (136-145); Total Protein 5.5 g/dL (5.7-8.2)
[2023-08-26] MEDS: PPN PER PHARMACY IV NR ×2 (01:11→20:00)
[2023-08-26 01:30] LABS: Anisocytosis Slight; Band Neutrophils % (manual) 2; Lymphocytes % (manual) 3 (10.0-50.0); Metamyelocytes % 1; Monocytes % (manual) 6 (0-12); Platelet Estimate Adequate
[2023-08-26 02:31] LABS: Base Excess -8.1 mmol/L (-2.0-2.0)
[2023-08-26 02:44] LABS: Basophils # (auto) 0 10 ^3/uL (0-0.2); Eosinophils # (auto) 0.2 10 ^3/uL (0-0.8); Eosinophils % (auto) 0.7 % (0.0-7.0); Hematocrit 27.1 % (41.0-53.0); Hemoglobin 8.6 g/dL (13.5-17.5); Lymphocytes # (auto) 1.1 10 ^3/uL (0.4-5.4); Lymphocytes % (auto) 3.8 % (10.0-50.0); Mean Corpuscular Hemoglobin 28.1 pg (28.0-32.0); Mean Corpuscular Hgb Conc. 31.9 g/dL (32.0-36.0); Monocytes # (auto) 1.2 10 ^3/uL (0-1.3); Monocytes % (auto) 4.2 % (0.0-12.0); Neutrophils # (auto) 25.4 10 ^3/uL (1.6-8.6); Neutrophils % (auto) 91.3 % (37.0-80.0); Platelet Count (auto) 267 10^3/uL (140-450); Red Blood Cells 3.08 10^6/uL (4.5-5.90); Red Cell Distribution Width 15.8 % (11.8-14.3); White Blood Cell 27.9 10^3/uL (4.4-10.8)
[2023-08-26 02:58] LABS: Alanine Aminotransferase 259 U/L (7-40); Albumin 2.8 g/dL (3.2-4.8); Alkaline Phosphatase 104 U/L (46-116); Anion Gap 9 (5-15); Aspartate Aminotransferase 51 U/L (13-40); BUN/Creatinine Ratio 25.5 (10.0-20.0); Bilirubin, Total 0.3 mg/dL (0.2-1.0); Blood Urea Nitrogen 56 mg/dL (9-23); Calcium 7.8 mg/dL (8.7-10.4); Carbon Dioxide 17 mmol/L (20-30); Chloride 130 mmol/L (98-107); Glucose 184 mg/dL (74-106); Magnesium 2.1 mg/dL (1.6-2.6); Phosphorus 4.8 mg/dL (2.4-5.1); Sodium 156 mmol/L (136-145); Total Protein 5.3 g/dL (5.7-8.2)
[2023-08-26] MEDS: VANCOMYCIN 750mg/150ml 150 ML IV SCH (06:42)
[2023-08-26 09:11] LABS: Base Excess -9.5 mmol/L (-2.0-2.0)
[2023-08-26] MEDS: SODIUM BICARB 50mEq/50ml Vial 50 ML in D5W 5% 1,000 ML IV SCH (14:42)
[2023-08-26] MEDS: NITROGLYCERIN 2% OINT 1GM PKG TD ONE (20:40)
[2023-08-27] VITALS (106 sets, daily range): BP systolic 85–137; BP diastolic 35–70; PULSE 73–132; RESP 7–34; TEMP 94.8–100.1; O2SAT 85–100
[2023-08-27] MEDS: ACETAMINOPHEN 650 MG RECT SUPP PR PRN (03:23)
[2023-08-27 04:46] LABS: Alanine Aminotransferase 154 U/L (7-40); Albumin 2.9 g/dL (3.2-4.8); Alkaline Phosphatase 114 U/L (46-116); Anion Gap 12 (5-15); Aspartate Aminotransferase 37 U/L (13-40); BUN/Creatinine Ratio 16.8 (10.0-20.0); Carbon Dioxide 17 mmol/L (20-30); Chloride 129 mmol/L (98-107); Glucose 82 mg/dL (74-106); Magnesium 2.3 mg/dL (1.6-2.6); Sodium 158 mmol/L (136-145)
[2023-08-27 04:47] LABS: Bilirubin, Total 0.4 mg/dL (0.2-1.0); Phosphorus 4.7 mg/dL (2.4-5.1); Total Protein 5.8 g/dL (5.7-8.2)
[2023-08-27 04:48] LABS: Blood Urea Nitrogen 41 mg/dL (9-23)
[2023-08-27 08:33] LABS: Base Excess -9.6 mmol/L (-2.0-2.0)
[2023-08-27] MEDS: NOREPINEPHRINE 8 MG/250ML KIT 250 ML IV SCH (09:30)
[2023-08-27 12:54] LABS: Alanine Aminotransferase 124 U/L (7-40); Albumin 2.5 g/dL (3.2-4.8); Alkaline Phosphatase 113 U/L (46-116); Anion Gap 11 (5-15); Aspartate Aminotransferase 42 U/L (13-40); Bilirubin, Total 0.4 mg/dL (0.2-1.0); Calcium 7.4 mg/dL (8.7-10.4); Carbon Dioxide 17 mmol/L (20-30); Chloride 129 mmol/L (98-107); Glucose 111 mg/dL (74-106); Potassium 4.5 mmol/L (3.5-5.1); Sodium 157 mmol/L (136-145); Total Protein 4.7 g/dL (5.7-8.2)
[2023-08-27] MEDS: D5W 5% 1,000 ML IV SCH (12:57)
[2023-08-27] MEDS: SODIUM CHLORIDE 0.9% 1,000 ML IV ONE (13:00)
[2023-08-27 13:03] LABS: INR 1.43 (0.9-1.15); Partial Thromboplastin Time 27.9 SEC (24.5-34.5); Prothrombin Time 14.8 sec (9.3-11.8)
[2023-08-27 13:08] LABS: Blood Urea Nitrogen 68 mg/dL (9-23)
[2023-08-27 15:38] LABS: Eosinophils # (auto) 0.2 10 ^3/uL (0-0.8); Hematocrit 22.4 % (41.0-53.0); Lymphocytes # (auto) 0.6 10 ^3/uL (0.4-5.4); Red Blood Cells 2.48 10^6/uL (4.5-5.90)
[2023-08-27 15:40] LABS: Basophils # (auto) 0.1 10 ^3/uL (0-0.2); Basophils % (auto) 0.4 % (0.0-2.0); Eosinophils % (auto) 0.9 % (0.0-7.0); Hemoglobin 7.2 g/dL (13.5-17.5); Lymphocytes % (auto) 2.4 % (10.0-50.0); Mean Corpuscular Volume 90.3 fL (80.0-100.0); Monocytes # (auto) 0.9 10 ^3/uL (0-1.3); Monocytes % (auto) 3.5 % (0.0-12.0); Neutrophils # (auto) 25.1 10 ^3/uL (1.6-8.6); Neutrophils % (auto) 92.8 % (37.0-80.0); Nucleated Red Blood Cells % 0.1 %; Platelet Count (auto) 202 10^3/uL (140-450); Red Cell Distribution Width 16.7 % (11.8-14.3)
[2023-08-27] MEDS: DOPamine 1600MCG/ML D5W 250 ML IV SCH (16:13)
[2023-08-27] MEDS: MICAFUNGIN SODIUM 100 MG in SODIUM CHL 0.9% 100 ML IV ONE (17:01)
[2023-08-27] MEDS: PPN PER PHARMACY IV NR (20:07)
[2023-08-28] VITALS (104 sets, daily range): BP systolic 100–186; BP diastolic 47–86; PULSE 86–115; RESP 10–25; TEMP 98.6–100.4; O2SAT 99–100
[2023-08-28 04:17] LABS: Alanine Aminotransferase 101 U/L (7-40); Albumin 2.7 g/dL (3.2-4.8); Alkaline Phosphatase 114 U/L (46-116); Anion Gap 9 (5-15); Aspartate Aminotransferase 37 U/L (13-40); BUN/Creatinine Ratio 18.3 (10.0-20.0); Bilirubin, Total 0.3 mg/dL (0.2-1.0); Blood Urea Nitrogen 64 mg/dL (9-23); Calcium 7.8 mg/dL (8.7-10.4); Carbon Dioxide 17 mmol/L (20-30); Chloride 121 mmol/L (98-107); Phosphorus 6.2 mg/dL (2.4-5.1); Potassium 4.5 mmol/L (3.5-5.1); Total Protein 5.4 g/dL (5.7-8.2)
[2023-08-28 04:21] LABS: Glucose 232 mg/dL (74-106); Sodium 147 mmol/L (136-145)
[2023-08-28 04:28] LABS: Eosinophils # (auto) 0.2 10 ^3/uL (0-0.8); Hemoglobin 7.6 g/dL (13.5-17.5); Lymphocytes # (auto) 0.5 10 ^3/uL (0.4-5.4); Monocytes # (auto) 0.8 10 ^3/uL (0-1.3); Monocytes % (auto) 3.5 % (0.0-12.0); Neutrophils # (auto) 21.4 10 ^3/uL (1.6-8.6); Neutrophils % (auto) 93.3 % (37.0-80.0); White Blood Cell 22.9 10^3/uL (4.4-10.8)
[2023-08-28 04:30] LABS: Basophils # (auto) 0.1 10 ^3/uL (0-0.2); Basophils % (auto) 0.3 % (0.0-2.0); Eosinophils % (auto) 0.7 % (0.0-7.0); Lymphocytes % (auto) 2.2 % (10.0-50.0); Mean Corpuscular Hemoglobin 28.8 pg (28.0-32.0); Mean Corpuscular Hgb Conc. 31.8 g/dL (32.0-36.0); Mean Corpuscular Volume 90.8 fL (80.0-100.0); Nucleated Red Blood Cells % 0.1 %; Platelet Count (auto) 212 10^3/uL (140-450); Red Blood Cells 2.64 10^6/uL (4.5-5.90); Red Cell Distribution Width 17.2 % (11.8-14.3)
[2023-08-28 07:02] LABS: Base Excess -11.6 mmol/L (-2.0-2.0)
[2023-08-28] MEDS: D5W 5% 1,000 ML IV SCH (10:24)
[2023-08-28] MEDS: MICAFUNGIN SODIUM 100 MG in SODIUM CHL 0.9% 100 ML IV SCH (10:32)
[2023-08-28] MEDS: VANCOMYCIN 1GM/200ML 200 ML IV ONE (11:51)
[2023-08-28] MEDS: CEFEPIME 2GM/50ML NS 50 ML IV SCH (12:49)
[2023-08-28] MEDS: TPN PER PHARMACY IV NR (21:50)
[2023-08-29] VITALS (110 sets, daily range): BP systolic 95–165; BP diastolic 37–88; PULSE 58–95; RESP 14–29; TEMP 96.3–98.8; O2SAT 100
[2023-08-29 04:07] LABS: Basophils # (auto) 0 10 ^3/uL (0-0.2); Basophils % (auto) 0.3 % (0.0-2.0); Eosinophils # (auto) 0.2 10 ^3/uL (0-0.8); Monocytes # (auto) 0.5 10 ^3/uL (0-1.3); Monocytes % (auto) 3.6 % (0.0-12.0)
[2023-08-29 04:12] LABS: Eosinophils % (auto) 1.5 % (0.0-7.0); Hematocrit 21.5 % (41.0-53.0); Lymphocytes # (auto) 0.4 10 ^3/uL (0.4-5.4); Lymphocytes % (auto) 2.6 % (10.0-50.0); Mean Corpuscular Hemoglobin 28.9 pg (28.0-32.0); Mean Corpuscular Hgb Conc. 32.4 g/dL (32.0-36.0); Mean Corpuscular Volume 89.3 fL (80.0-100.0); Neutrophils # (auto) 13.6 10 ^3/uL (1.6-8.6); Nucleated Red Blood Cells % 0.1 %; Platelet Count (auto) 188 10^3/uL (140-450); Red Blood Cells 2.41 10^6/uL (4.5-5.90); Red Cell Distribution Width 17.2 % (11.8-14.3); White Blood Cell 14.8 10^3/uL (4.4-10.8)
[2023-08-29 07:25] LABS: Base Excess -13.2 mmol/L (-2.0-2.0)
[2023-08-29 07:33] LABS: Alanine Aminotransferase 77 U/L (7-40); Albumin 2.6 g/dL (3.2-4.8); Alkaline Phosphatase 117 U/L (46-116); Anion Gap 12 (5-15); Aspartate Aminotransferase 34 U/L (13-40); BUN/Creatinine Ratio 14.8 (10.0-20.0); Blood Urea Nitrogen 63 mg/dL (9-23); Calcium 7.5 mg/dL (8.5-10.1); Carbon Dioxide 15 mmol/L (20-30); Chloride 118 mmol/L (98-107); Glucose 206 mg/dL (74-106); Potassium 3.8 mmol/L (3.5-5.1); Sodium 145 mmol/L (136-145); Triglycerides 187 mg/dL (< 150)
[2023-08-29 07:34] LABS: Bilirubin, Total 0.3 mg/dL (0.2-1.0); Total Protein 5.1 g/dL (5.7-8.2)
[2023-08-29] MEDS: DOPamine 1600MCG/ML D5W 250 ML IV SCH (10:27)
[2023-08-29] MEDS: SODIUM BICARB 50mEq/50ml Vial 75 ML in D5W 5% 1,000 ML IV SCH (10:27)
[2023-08-29] MEDS: PROPOFOL 100 ML IV SCH (11:00)
[2023-08-29] MEDS: PROPOFOL 100 ML IV ONE (11:08)
[2023-08-29 16:46] LABS: Base Excess -10.6 mmol/L (-2.0-2.0)
[2023-08-29] MEDS: ACCU-CHEK COMFORT CURVE STRIP VI SCH (18:01)
[2023-08-29] MEDS: InsuLIN REG 1unit/0.01ml Soln (100units/ml) SC SCH (18:06)
[2023-08-29] MEDS: PANTOPRAZOLE 40 MG/10 ML VIAL INJ IV SCH (21:52)
[2023-08-29] MEDS: SODIUM BICARB 8.4% 50Meq/50ml SYR Vial IV ONE (21:56)
[2023-08-29] MEDS: TPN PER PHARMACY IV NR (22:09)
[2023-08-30] VITALS (107 sets, daily range): BP systolic 89–149; BP diastolic 43–67; PULSE 68–94; RESP 15–33; TEMP 97–98; O2SAT 98–100
[2023-08-30 04:04] LABS: Basophils # (auto) 0 10 ^3/uL (0-0.2); Basophils % (auto) 0.2 % (0.0-2.0); Eosinophils # (auto) 0.1 10 ^3/uL (0-0.8); Eosinophils % (auto) 1.5 % (0.0-7.0); Hematocrit 21.9 % (41.0-53.0); Hemoglobin 7.6 g/dL (13.5-17.5); Lymphocytes # (auto) 0.2 10 ^3/uL (0.4-5.4); Mean Corpuscular Hemoglobin 30.4 pg (28.0-32.0); Mean Corpuscular Hgb Conc. 34.8 g/dL (32.0-36.0); Mean Corpuscular Volume 87.2 fL (80.0-100.0); Monocytes # (auto) 0.4 10 ^3/uL (0-1.3); Monocytes % (auto) 3.6 % (0.0-12.0); Neutrophils # (auto) 9.3 10 ^3/uL (1.6-8.6); Neutrophils % (auto) 92.7 % (37.0-80.0); Nucleated Red Blood Cells % 0.2 %; Platelet Count (auto) 161 10^3/uL (140-450); Red Blood Cells 2.52 10^6/uL (4.5-5.90); Red Cell Distribution Width 16.5 % (11.8-14.3)
[2023-08-30 04:25] LABS: Alanine Aminotransferase 49 U/L (7-40); Albumin 2.3 g/dL (3.2-4.8); Alkaline Phosphatase 102 U/L (46-116); Anion Gap 10 (5-15); Aspartate Aminotransferase 26 U/L (13-40); BUN/Creatinine Ratio 15.5 (10.0-20.0); Bilirubin, Total 0.2 mg/dL (0.2-1.0); Calcium 7.4 mg/dL (8.7-10.4); Carbon Dioxide 18 mmol/L (20-30); Chloride 113 mmol/L (98-107); Glucose 180 mg/dL (74-106); Magnesium 1.9 mg/dL (1.6-2.6); Phosphorus 5.2 mg/dL (2.4-5.1); Sodium 141 mmol/L (136-145)
[2023-08-30 04:40] LABS: Blood Urea Nitrogen 73 mg/dL (9-23)
[2023-08-30 08:08] LABS: Base Excess -8.1 mmol/L (-2.0-2.0)
[2023-08-30] MEDS: POTASSIUM CHL 20MEQ/100ML 100 ML IV SCH (09:11)
[2023-08-30] MEDS: BUMETANIDE 2.5mg/10ml (0.25 mg/ml) INJ IV ONE (09:11)
[2023-08-30] MEDS: BUMETANIDE 2.5mg/10ml (0.25 mg/ml) INJ IV SCH (18:06)
[2023-08-30] MEDS: TPN PER PHARMACY IV NR (20:22)
[2023-08-30] MEDS: PANTOPRAZOLE 40 MG/10 ML VIAL INJ IV SCH (22:39)
[2023-08-31] VITALS (107 sets, daily range): BP systolic 107–151; BP diastolic 44–75; PULSE 52–98; RESP 17–29; TEMP 96.3–99.5; O2SAT 99–100
[2023-08-31 04:18] LABS: Base Excess -9.8 mmol/L (-2.0-2.0)
[2023-08-31 04:22] LABS: Basophils # (auto) 0 10 ^3/uL (0-0.2); Basophils % (auto) 0.1 % (0.0-2.0); Eosinophils # (auto) 0.1 10 ^3/uL (0-0.8); Hemoglobin 7.6 g/dL (13.5-17.5); Lymphocytes # (auto) 0.3 10 ^3/uL (0.4-5.4); Monocytes # (auto) 0.4 10 ^3/uL (0-1.3); Neutrophils # (auto) 8.4 10 ^3/uL (1.6-8.6); Nucleated Red Blood Cells % 0.4 %; Red Cell Distribution Width 16.8 % (11.8-14.3)
[2023-08-31 04:24] LABS: Eosinophils % (auto) 1.5 % (0.0-7.0); Hematocrit 22.5 % (41.0-53.0); Lymphocytes % (auto) 2.8 % (10.0-50.0); Mean Corpuscular Hemoglobin 29.4 pg (28.0-32.0); Mean Corpuscular Hgb Conc. 33.7 g/dL (32.0-36.0); Mean Corpuscular Volume 87.4 fL (80.0-100.0); Monocytes % (auto) 4.2 % (0.0-12.0); Neutrophils % (auto) 91.4 % (37.0-80.0); Platelet Count (auto) 162 10^3/uL (140-450); Red Blood Cells 2.58 10^6/uL (4.5-5.90); White Blood Cell 9.2 10^3/uL (4.4-10.8)
[2023-08-31 04:44] LABS: Alanine Aminotransferase 43 U/L (7-40); Alkaline Phosphatase 131 U/L (46-116); Anion Gap 16 (5-15); Calcium 7.8 mg/dL (8.7-10.4); Carbon Dioxide 13 mmol/L (20-30); Chloride 112 mmol/L (98-107); Glucose 187 mg/dL (74-106); Sodium 141 mmol/L (136-145)
[2023-08-31 04:45] LABS: BUN/Creatinine Ratio 15.6 (10.0-20.0); Blood Urea Nitrogen 79 mg/dL (9-23); Magnesium 1.9 mg/dL (1.6-2.6)
[2023-08-31 04:46] LABS: Albumin 2.3 g/dL (3.2-4.8); Aspartate Aminotransferase 29 U/L (13-40)
[2023-08-31 04:47] LABS: Bilirubin, Total 0.2 mg/dL (0.2-1.0); Phosphorus 4.1 mg/dL (2.4-5.1); Total Protein 5.1 g/dL (5.7-8.2)
[2023-08-31] MEDS: POTASSIUM CHL 20MEQ/100ML 100 ML IV SCH (07:47)
[2023-08-31] MEDS: SODIUM BICARB 8.4% 50Meq/50ml SYR Vial IV ONE ×2 (10:05→10:07)
[2023-08-31] MEDS: SODIUM BICARB 50mEq/50ml Vial 150 ML in D5W 5% 1,000 ML IV SCH (17:04)
[2023-08-31] MEDS: IRON SUCROSE COMPLEX 100 ML IV SCH (19:44)
[2023-08-31] MEDS: EPOETIN ALFA-EPBX 4,000 UNIT/ML VIAL SC SCH (21:12)
[2023-08-31] MEDS: TPN PER PHARMACY IV NR (21:15)
[2023-09-01] VITALS (109 sets, daily range): BP systolic 111–146; BP diastolic 43–67; PULSE 71–85; RESP 22–25; TEMP 97–97.5; O2SAT 94–100
[2023-09-01 03:53] LABS: Basophils # (auto) 0 10 ^3/uL (0-0.2); Basophils % (auto) 0.1 % (0.0-2.0); Eosinophils # (auto) 0.1 10 ^3/uL (0-0.8); Eosinophils % (auto) 1.5 % (0.0-7.0); Hematocrit 21.6 % (41.0-53.0); Monocytes # (auto) 0.3 10 ^3/uL (0-1.3); Red Blood Cells 2.46 10^6/uL (4.5-5.90)
[2023-09-01 03:56] LABS: Hemoglobin 7.3 g/dL (13.5-17.5); Lymphocytes # (auto) 0.2 10 ^3/uL (0.4-5.4); Lymphocytes % (auto) 2.6 % (10.0-50.0); Mean Corpuscular Hemoglobin 29.6 pg (28.0-32.0); Mean Corpuscular Hgb Conc. 33.8 g/dL (32.0-36.0); Mean Corpuscular Volume 87.8 fL (80.0-100.0); Monocytes % (auto) 3.8 % (0.0-12.0); Neutrophils # (auto) 7.9 10 ^3/uL (1.6-8.6); Nucleated Red Blood Cells % 0.3 %; Platelet Count (auto) 163 10^3/uL (140-450); Red Cell Distribution Width 16.3 % (11.8-14.3); White Blood Cell 8.6 10^3/uL (4.4-10.8)
[2023-09-01 04:03] LABS: Alanine Aminotransferase 38 U/L (7-40); Albumin 2.2 g/dL (3.2-4.8); Alkaline Phosphatase 120 U/L (46-116); Anion Gap 12 (5-15); Aspartate Aminotransferase 28 U/L (13-40); BUN/Creatinine Ratio 14.8 (10.0-20.0); Calcium 7.8 mg/dL (8.7-10.4); Carbon Dioxide 21 mmol/L (20-30); Chloride 109 mmol/L (98-107); Glucose 217 mg/dL (74-106); Magnesium 1.9 mg/dL (1.6-2.6); Potassium 3.4 mmol/L (3.5-5.1); Sodium 142 mmol/L (136-145)
[2023-09-01 04:04] LABS: Bilirubin, Total 0.2 mg/dL (0.2-1.0); Phosphorus 4.7 mg/dL (2.4-5.1); Total Protein 5.1 g/dL (5.7-8.2)
[2023-09-01 04:45] LABS: Blood Urea Nitrogen 83 mg/dL (9-23)
[2023-09-01] MEDS: POTASSIUM CHL 20MEQ/100ML 100 ML IV ONE ×2 (06:36→10:23)
[2023-09-01 09:24] LABS: Base Excess -4.4 mmol/L (-2.0-2.0)
[2023-09-01] MEDS: HEPARIN 1,000 UNITS/ml 1ML VIAL ONE (12:49)
[2023-09-01] MEDS: SODIUM BICARB 50mEq/50ml Vial 150 ML in D5W 5% 1,000 ML IV SCH (16:00)
[2023-09-01] MEDS: TPN PER PHARMACY IV NR (20:36)
[2023-09-02] VITALS (106 sets, daily range): BP systolic 99–155; BP diastolic 44–70; PULSE 64–101; RESP 13–40; TEMP 97.2–99.5; O2SAT 96–100
[2023-09-02 04:01] LABS: Mean Corpuscular Hemoglobin 29.2 pg (28.0-32.0)
[2023-09-02 04:05] LABS: Hematocrit 21.7 % (41.0-53.0); Hemoglobin 7.3 g/dL (13.5-17.5); Mean Corpuscular Hgb Conc. 33.4 g/dL (32.0-36.0); Mean Corpuscular Volume 87.2 fL (80.0-100.0); Platelet Count (auto) 172 10^3/uL (140-450); Red Blood Cells 2.49 10^6/uL (4.5-5.90); Red Cell Distribution Width 16.8 % (11.8-14.3); White Blood Cell 9.4 10^3/uL (4.4-10.8)
[2023-09-02 04:19] LABS: Alanine Aminotransferase 41 U/L (7-40); Albumin 2.3 g/dL (3.2-4.8); Alkaline Phosphatase 138 U/L (46-116); Anion Gap 10 (5-15); Aspartate Aminotransferase 56 U/L (13-40); BUN/Creatinine Ratio 14.8 (10.0-20.0); Calcium 7.9 mg/dL (8.5-10.1); Carbon Dioxide 22 mmol/L (20-30); Chloride 108 mmol/L (98-107); Glucose 136 mg/dL (74-106); Potassium 3.6 mmol/L (3.5-5.1); Sodium 140 mmol/L (136-145)
[2023-09-02 04:20] LABS: Basophils % (manual) 0 (0.0-2.0); Bilirubin, Total 0.2 mg/dL (0.2-1.0); Blast Cells 0; Metamyelocytes % 0; Phosphorus 4.8 mg/dL (2.4-5.1); Promyelocytes % 0; Reactive Lymphocytes 0; Total Protein 5.2 g/dL (5.7-8.2)
[2023-09-02 04:50] LABS: Blood Urea Nitrogen 90 mg/dL (9-23)
[2023-09-02 06:33] LABS: Band Neutrophils % (manual) 9; Eosinophils % (manual) 1 (0-7); Lymphocytes % (manual) 2 (10.0-50.0); Monocytes % (manual) 8 (0-12); Myelocytes % 1
[2023-09-02 06:34] LABS: Anisocytosis Slight; Platelet Estimate Adequate
[2023-09-02 07:43] LABS: Base Excess -5.3 mmol/L (-2.0-2.0)
[2023-09-02 09:29] LABS: Hepatitis B Surface Antibody Negative (Negative)
[2023-09-02 09:41] LABS: Hepatitis B Surface Antigen Negative (Negative)
[2023-09-02 10:02] LABS: Hepatitis B Core IgM Negative
[2023-09-02] MEDS: BUMETANIDE 2.5mg/10ml (0.25 mg/ml) INJ IV SCH (17:14)
[2023-09-02] MEDS: SODIUM CHL 0.9% 1000 ML BAG XX ONE (20:01)
[2023-09-02] MEDS: TPN PER PHARMACY IV NR (20:17)
[2023-09-02] MEDS: EPOETIN ALFA-EPBX 4,000 UNIT/ML VIAL SC ONE (20:43)
[2023-09-03] VITALS (103 sets, daily range): BP systolic 104–160; BP diastolic 48–78; PULSE 75–107; RESP 11–33; TEMP 97.2–99.7; O2SAT 77–100
[2023-09-03 03:55] LABS: Hemoglobin 7.1 g/dL (13.5-17.5); Platelet Count (auto) 153 10^3/uL (140-450); Red Blood Cells 2.43 10^6/uL (4.5-5.90)
[2023-09-03 03:57] LABS: Hematocrit 21.1 % (41.0-53.0); Mean Corpuscular Hemoglobin 29.3 pg (28.0-32.0); Mean Corpuscular Hgb Conc. 33.8 g/dL (32.0-36.0); Mean Corpuscular Volume 86.8 fL (80.0-100.0); Red Cell Distribution Width 16.8 % (11.8-14.3); White Blood Cell 9.2 10^3/uL (4.4-10.8)
[2023-09-03 04:06] LABS: Alanine Aminotransferase 38 U/L (7-40); Albumin 2.2 g/dL (3.2-4.8); Alkaline Phosphatase 136 U/L (46-116); Calcium 8.1 mg/dL (8.7-10.4); Carbon Dioxide 23 mmol/L (20-30); Chloride 105 mmol/L (98-107)
[2023-09-03 04:07] LABS: Anion Gap 10 (5-15); Aspartate Aminotransferase 43 U/L (13-40); BUN/Creatinine Ratio 13.5 (10.0-20.0); Basophils % (manual) 0 (0.0-2.0); Bilirubin, Total 0.2 mg/dL (0.2-1.0); Blast Cells 0; Eosinophils % (manual) 0 (0-7); Glucose 186 mg/dL (74-106); Magnesium 2.1 mg/dL (1.6-2.6); Metamyelocytes % 0; Phosphorus 4.8 mg/dL (2.4-5.1); Potassium 3.8 mmol/L (3.5-5.1); Promyelocytes % 0; Reactive Lymphocytes 0; Sodium 138 mmol/L (136-145); Total Protein 5.5 g/dL (5.7-8.2)
[2023-09-03 04:13] LABS: Blood Urea Nitrogen 73 mg/dL (9-23)
[2023-09-03 05:33] LABS: Band Neutrophils % (manual) 18; Hypochromia Slight; Lymphocytes % (manual) 4 (10.0-50.0); Monocytes % (manual) 4 (0-12); Myelocytes % 2; Platelet Estimate Adequate
[2023-09-03 07:41] LABS: Base Excess -2.4 mmol/L (-2.0-2.0)
[2023-09-03] MEDS: VANCOMYCIN 1GM/200ML 200 ML IV ONE (16:27)
[2023-09-03 16:41] LABS: INR 1.34 (0.9-1.15); Prothrombin Time 13.9 sec (9.3-11.8)
[2023-09-03] MEDS: TPN PER PHARMACY IV NR (20:04)
[2023-09-03] MEDS: SODIUM CHL 0.9% 1000 ML BAG XX ONE (22:15)
[2023-09-03] MEDS: EPOETIN ALFA-EPBX 4,000 UNIT/ML VIAL SC ONE (22:25)
[2023-09-04] VITALS (113 sets, daily range): BP systolic 85–130; BP diastolic 46–83; PULSE 86–105; RESP 11–31; TEMP 94.6–99.3; O2SAT 94–100
[2023-09-04 03:57] LABS: White Blood Cell 10.2 10^3/uL (4.4-10.8)
[2023-09-04 03:59] LABS: Hematocrit 19.6 % (41.0-53.0); Mean Corpuscular Hgb Conc. 34.6 g/dL (32.0-36.0); Mean Corpuscular Volume 86.8 fL (80.0-100.0); Platelet Count (auto) 114 10^3/uL (140-450); Red Blood Cells 2.26 10^6/uL (4.5-5.90); Red Cell Distribution Width 16.2 % (11.8-14.3)
[2023-09-04 04:12] LABS: Hemoglobin 6.8 g/dL (13.5-17.5)
[2023-09-04 04:13] LABS: Basophils % (manual) 0 (0.0-2.0); Blast Cells 0; Metamyelocytes % 0; Myelocytes % 0; Promyelocytes % 0; Reactive Lymphocytes 0
[2023-09-04 04:15] LABS: Alanine Aminotransferase 32 U/L (7-40); Albumin 2.1 g/dL (3.2-4.8); Alkaline Phosphatase 128 U/L (46-116); Anion Gap 9 (5-15); Aspartate Aminotransferase 33 U/L (13-40); BUN/Creatinine Ratio 13.2 (10.0-20.0); Calcium 7.7 mg/dL (8.7-10.4); Carbon Dioxide 25 mmol/L (20-30); Chloride 103 mmol/L (98-107); Glucose 137 mg/dL (74-106); Magnesium 2.1 mg/dL (1.6-2.6); Phosphorus 4.9 mg/dL (2.4-5.1); Potassium 3.7 mmol/L (3.5-5.1); Sodium 137 mmol/L (136-145)
[2023-09-04 04:16] LABS: Bilirubin, Total 0.2 mg/dL (0.2-1.0); Total Protein 5.4 g/dL (5.7-8.2)
[2023-09-04 04:33] LABS: Blood Urea Nitrogen 60 mg/dL (9-23)
[2023-09-04 05:27] LABS: Band Neutrophils % (manual) 18; Eosinophils % (manual) 1 (0-7); Lymphocytes % (manual) 12 (10.0-50.0); Monocytes % (manual) 4 (0-12)
[2023-09-04 05:28] LABS: Platelet Estimate Decreased
[2023-09-04] MEDS: SODIUM CHL 0.9% 1000 ML BAG XX ONE (10:30)
[2023-09-04] MEDS: ALBUMIN 25% 100 ML IV STA (19:20)
[2023-09-04] MEDS: TPN PER PHARMACY IV NR (20:41)
[2023-09-05] VITALS (107 sets, daily range): BP systolic 88–131; BP diastolic 46–68; PULSE 81–107; RESP 13–39; TEMP 97–100.4; O2SAT 93–100
[2023-09-05 03:30] LABS: Hemoglobin 7.1 g/dL (13.5-17.5); Platelet Count (auto) 76 10^3/uL (140-450)
[2023-09-05 03:32] LABS: Hematocrit 20.5 % (41.0-53.0); Mean Corpuscular Hemoglobin 30.1 pg (28.0-32.0); Mean Corpuscular Hgb Conc. 34.5 g/dL (32.0-36.0); Mean Corpuscular Volume 87.1 fL (80.0-100.0); Red Blood Cells 2.35 10^6/uL (4.5-5.90); Red Cell Distribution Width 16.1 % (11.8-14.3); White Blood Cell 7.5 10^3/uL (4.4-10.8)
[2023-09-05 03:34] LABS: Basophils % (manual) 0 (0.0-2.0); Blast Cells 0; Metamyelocytes % 0; Myelocytes % 0; Promyelocytes % 0; Reactive Lymphocytes 0
[2023-09-05 03:45] LABS: Alanine Aminotransferase 29 U/L (7-40); Albumin 2.3 g/dL (3.2-4.8); Alkaline Phosphatase 116 U/L (46-116); Anion Gap 5 (5-15); Aspartate Aminotransferase 36 U/L (13-40); Calcium 7.8 mg/dL (8.7-10.4); Carbon Dioxide 29 mmol/L (20-30); Chloride 105 mmol/L (98-107); Glucose 72 mg/dL (74-106); Magnesium 2.2 mg/dL (1.6-2.6); Phosphorus 3.4 mg/dL (2.4-5.1); Potassium 3.7 mmol/L (3.5-5.1); Sodium 139 mmol/L (136-145); Triglycerides 184 mg/dL (< 150)
[2023-09-05 03:46] LABS: Bilirubin, Total 0.4 mg/dL (0.2-1.0); Total Protein 5.4 g/dL (5.7-8.2)
[2023-09-05 04:00] LABS: BUN/Creatinine Ratio 11.8 (10.0-20.0); Blood Urea Nitrogen 41 mg/dL (9-23)
[2023-09-05 04:39] LABS: Band Neutrophils % (manual) 15; Eosinophils % (manual) 1 (0-7); Lymphocytes % (manual) 11 (10.0-50.0); Monocytes % (manual) 5 (0-12); Platelet Estimate Decreased
[2023-09-05] MEDS: VANCOMYCIN 1GM/200ML 200 ML IV ONE (10:28)
[2023-09-05] MEDS: TPN PER PHARMACY IV NR (20:04)
[2023-09-06] VITALS (109 sets, daily range): BP systolic 94–147; BP diastolic 40–71; PULSE 67–89; RESP 13–26; TEMP 36.5; O2SAT 92–100
[2023-09-06 05:08] LABS: Alanine Aminotransferase 29 U/L (7-40); Albumin 2.2 g/dL (3.2-4.8); Alkaline Phosphatase 120 U/L (46-116); Anion Gap 9 (5-15); Aspartate Aminotransferase 32 U/L (13-40); BUN/Creatinine Ratio 13.2 (10.0-20.0); Bilirubin, Total 0.3 mg/dL (0.2-1.0); Blood Urea Nitrogen 62 mg/dL (9-23); Calcium 7.8 mg/dL (8.7-10.4); Carbon Dioxide 23 mmol/L (20-30); Chloride 101 mmol/L (98-107); Glucose 243 mg/dL (74-106); Magnesium 2.3 mg/dL (1.6-2.6); Phosphorus 4.9 mg/dL (2.4-5.1); Potassium 4.4 mmol/L (3.5-5.1); Sodium 133 mmol/L (136-145); Total Protein 5.6 g/dL (5.7-8.2)
[2023-09-06 05:10] LABS: Hemoglobin 7.4 g/dL (13.5-17.5)
[2023-09-06 05:13] LABS: Hematocrit 21.5 % (41.0-53.0); Mean Corpuscular Hemoglobin 31.1 pg (28.0-32.0); Mean Corpuscular Hgb Conc. 34.6 g/dL (32.0-36.0); Mean Corpuscular Volume 89.8 fL (80.0-100.0); Platelet Count (auto) 88 10^3/uL (140-450); Red Cell Distribution Width 17.2 % (11.8-14.3); White Blood Cell 9.2 10^3/uL (4.4-10.8)
[2023-09-06 05:20] LABS: Basophils % (manual) 0 (0.0-2.0); Blast Cells 0; Promyelocytes % 0; Reactive Lymphocytes 0
[2023-09-06 06:49] LABS: Band Neutrophils % (manual) 18; Eosinophils % (manual) 2 (0-7); Lymphocytes % (manual) 5 (10.0-50.0); Metamyelocytes % 1; Monocytes % (manual) 6 (0-12); Myelocytes % 1
[2023-09-06 06:50] LABS: Anisocytosis Slight; Platelet Estimate Decreased; Polychromasia Slight
[2023-09-06] MEDS ORDERED: DEXTROSE (50%) 50ML SYRG IV SCH (10:00)
[2023-09-06] MEDS: ACCU-CHEK COMFORT CURVE STRIP VI SCH (12:24)
[2023-09-06] MEDS: InsuLIN REG 1unit/0.01ml Soln (100units/ml) SC SCH (12:28)
[2023-09-06] MEDS: MEROPENEM 1GM IVPB 50 ML IV SCH (21:31)
[2023-09-06] MEDS: TPN PER PHARMACY IV NR (21:35)
[2023-09-07] VITALS (109 sets, daily range): BP systolic 87–129; BP diastolic 43–61; PULSE 79–94; RESP 11–30; TEMP 96.3–99.7; O2SAT 94–100
[2023-09-07 04:08] LABS: Hematocrit 21.1 % (41.0-53.0); Mean Corpuscular Hgb Conc. 33.1 g/dL (32.0-36.0); Mean Corpuscular Volume 90.8 fL (80.0-100.0); Platelet Count (auto) 96 10^3/uL (140-450); Red Blood Cells 2.32 10^6/uL (4.5-5.90); Red Cell Distribution Width 17.5 % (11.8-14.3); White Blood Cell 7.5 10^3/uL (4.4-10.8)
[2023-09-07 04:29] LABS: Alanine Aminotransferase 25 U/L (7-40); Albumin 2.2 g/dL (3.2-4.8); Alkaline Phosphatase 111 U/L (46-116); Anion Gap 11 (5-15); Aspartate Aminotransferase 22 U/L (13-40); BUN/Creatinine Ratio 12.5 (10.0-20.0); Carbon Dioxide 21 mmol/L (20-30); Chloride 101 mmol/L (98-107); Glucose 197 mg/dL (74-106); Magnesium 2.4 mg/dL (1.6-2.6); Potassium 3.9 mmol/L (3.5-5.1); Sodium 133 mmol/L (136-145)
[2023-09-07 04:30] LABS: Bilirubin, Total 0.2 mg/dL (0.2-1.0); Phosphorus 5.5 mg/dL (2.4-5.1); Total Protein 5.6 g/dL (5.7-8.2)
[2023-09-07 04:36] LABS: Blood Urea Nitrogen 74 mg/dL (9-23)
[2023-09-07 04:39] LABS: Band Neutrophils % (manual) 0; Basophils % (manual) 0 (0.0-2.0); Blast Cells 0; Metamyelocytes % 0; Myelocytes % 0; Promyelocytes % 0; Reactive Lymphocytes 0
[2023-09-07] MEDS: SODIUM CHL 0.9% 1000 ML BAG XX ONE (07:00)
[2023-09-07 08:10] LABS: Eosinophils % (manual) 4 (0-7); Lymphocytes % (manual) 8 (10.0-50.0); Monocytes % (manual) 6 (0-12); Platelet Estimate Decreased
[2023-09-07 09:17] LABS: Hematocrit 22.1 % (41.0-53.0); Hemoglobin 7.4 g/dL (13.5-17.5)
[2023-09-07] MEDS: MEROPENEM 500MG IVPB 50 ML IV SCH (20:27)
[2023-09-07] MEDS: EPOETIN ALFA-EPBX 10,000 UNIT/1ML VIAL SC ONE (20:44)
[2023-09-07] MEDS: TPN PER PHARMACY IV NR (20:56)
[2023-09-08] VITALS (111 sets, daily range): BP systolic 91–130; BP diastolic 44–70; PULSE 80–100; RESP 10–30; TEMP 93.9–99.1; O2SAT 98–100
[2023-09-08 04:58] LABS: Alanine Aminotransferase 22 U/L (7-40); Albumin 2.1 g/dL (3.2-4.8); Alkaline Phosphatase 114 U/L (46-116); Anion Gap 9 (5-15); Aspartate Aminotransferase 21 U/L (13-40); Calcium 7.5 mg/dL (8.7-10.4); Carbon Dioxide 24 mmol/L (20-30); Chloride 101 mmol/L (98-107); Glucose 192 mg/dL (74-106); Magnesium 2.2 mg/dL (1.6-2.6); Potassium 3.3 mmol/L (3.5-5.1); Sodium 134 mmol/L (136-145)
[2023-09-08 04:59] LABS: Bilirubin, Total 0.2 mg/dL (0.2-1.0); Hemoglobin 7.1 g/dL (13.5-17.5); Phosphorus 3.9 mg/dL (2.4-5.1); Total Protein 5.5 g/dL (5.7-8.2); White Blood Cell 7.7 10^3/uL (4.4-10.8)
[2023-09-08 05:02] LABS: Hematocrit 20.9 % (41.0-53.0); Mean Corpuscular Hemoglobin 30.7 pg (28.0-32.0); Mean Corpuscular Hgb Conc. 33.7 g/dL (32.0-36.0); Mean Corpuscular Volume 90.9 fL (80.0-100.0); Platelet Count (auto) 104 10^3/uL (140-450); Red Cell Distribution Width 17.5 % (11.8-14.3)
[2023-09-08 05:08] LABS: Blood Urea Nitrogen 56 mg/dL (9-23)
[2023-09-08 05:14] LABS: Basophils % (manual) 0 (0.0-2.0); Blast Cells 0; Myelocytes % 0; Promyelocytes % 0; Reactive Lymphocytes 0
[2023-09-08] MEDS: SODIUM CHL 0.9% 1000 ML BAG XX ONE (07:00)
[2023-09-08] MEDS: ALBUMIN 25% 100 ML IV PRN (08:05)
[2023-09-08 08:08] LABS: Base Excess -2.2 mmol/L (-2.0-2.0)
[2023-09-08 08:22] LABS: Band Neutrophils % (manual) 11; Eosinophils % (manual) 7 (0-7); Lymphocytes % (manual) 13 (10.0-50.0); Metamyelocytes % 1; Monocytes % (manual) 10 (0-12); Platelet Estimate Decreased
[2023-09-08] MEDS: POTASSIUM CHL 20MEQ/100ML 100 ML IV SCH (11:17)
[2023-09-08] MEDS: GASTROGRAFIN 120 ML SOL ONE (14:19)
[2023-09-08] MEDS ORDERED: DEXTROSE (50%) 50ML SYRG IV PRN (18:45)
[2023-09-08] MEDS ORDERED: TPN PER PHARMACY IV NR (20:00)
[2023-09-08] MEDS: EPOETIN ALFA-EPBX 10,000 UNIT/1ML VIAL SC ONE (21:02)
[2023-09-08] MEDS: ACCU-CHEK COMFORT CURVE STRIP VI SCH (23:33)
[2023-09-08] MEDS: InsuLIN REG 1unit/0.01ml Soln (100units/ml) SC SCH (23:33)
[2023-09-09] VITALS (109 sets, daily range): BP systolic 82–137; BP diastolic 37–84; PULSE 85–107; RESP 11–26; TEMP 97.5–99; O2SAT 93–100
[2023-09-09 04:25] LABS: Basophils # (auto) 0 10 ^3/uL (0-0.2); Basophils % (auto) 0.2 % (0.0-2.0); Eosinophils # (auto) 0.6 10 ^3/uL (0-0.8); Eosinophils % (auto) 7.7 % (0.0-7.0); Hematocrit 20.7 % (41.0-53.0); Lymphocytes # (auto) 0.7 10 ^3/uL (0.4-5.4); Lymphocytes % (auto) 9.4 % (10.0-50.0); Mean Corpuscular Hemoglobin 30.5 pg (28.0-32.0); Mean Corpuscular Hgb Conc. 33.1 g/dL (32.0-36.0); Monocytes # (auto) 0.8 10 ^3/uL (0-1.3); Monocytes % (auto) 10.7 % (0.0-12.0); Neutrophils # (auto) 5.7 10 ^3/uL (1.6-8.6); Nucleated Red Blood Cells % 0.9 %; Platelet Count (auto) 111 10^3/uL (140-450); Red Blood Cells 2.25 10^6/uL (4.5-5.90); Red Cell Distribution Width 17.9 % (11.8-14.3); White Blood Cell 7.9 10^3/uL (4.4-10.8)
[2023-09-09 04:35] LABS: Alanine Aminotransferase 26 U/L (7-40); Albumin 2.7 g/dL (3.2-4.8); Alkaline Phosphatase 117 U/L (46-116); Anion Gap 8 (5-15); Aspartate Aminotransferase 40 U/L (13-40); Bilirubin, Total 0.3 mg/dL (0.2-1.0); Blood Urea Nitrogen 51 mg/dL (9-23); Calcium 7.8 mg/dL (8.7-10.4); Carbon Dioxide 25 mmol/L (20-30); Chloride 104 mmol/L (98-107); Glucose 96 mg/dL (74-106); Potassium 4.3 mmol/L (3.5-5.1); Sodium 137 mmol/L (136-145)
[2023-09-09 04:45] LABS: Hemoglobin 6.8 g/dL (13.5-17.5)
[2023-09-09 07:48] LABS: Base Excess -2.3 mmol/L (-2.0-2.0)
[2023-09-09] MEDS: PROPOFOL 100 ML IV SCH (12:04)
[2023-09-09] MEDS: PROPOFOL 100 ML IV ONE (12:05)
[2023-09-09 16:54] LABS: Hemoglobin 7.6 g/dL (13.5-17.5)
[2023-09-09] MEDS: PANTOPRAZOLE 40 MG/10 ML VIAL INJ IV SCH (22:23)
[2023-09-09] MEDS: METOCLOPRAMIDE HCL 5MG/ml INJ 2ml VIAL IV SCH (22:24)
[2023-09-09] MEDS: EPOETIN ALFA-EPBX 10,000 UNIT/1ML VIAL IV ONE (22:49)
[2023-09-10] VITALS (118 sets, daily range): BP systolic 87–131; BP diastolic 25–68; PULSE 80–107; RESP 7–27; TEMP 97.9–98.8; O2SAT 98–100
[2023-09-10 03:59] LABS: Hemoglobin 7.4 g/dL (13.5-17.5); Mean Corpuscular Hemoglobin 31.3 pg (28.0-32.0)
[2023-09-10 04:03] LABS: Mean Corpuscular Hgb Conc. 33.9 g/dL (32.0-36.0); Mean Corpuscular Volume 92.5 fL (80.0-100.0); Platelet Count (auto) 95 10^3/uL (140-450); Red Blood Cells 2.38 10^6/uL (4.5-5.90); Red Cell Distribution Width 18.5 % (11.8-14.3); White Blood Cell 10.3 10^3/uL (4.4-10.8)
[2023-09-10 04:10] LABS: Basophils % (manual) 0 (0.0-2.0); Blast Cells 0; Metamyelocytes % 0; Myelocytes % 0; Promyelocytes % 0; Reactive Lymphocytes 0
[2023-09-10 04:24] LABS: Chloride 103 mmol/L (98-107); Potassium 4.5 mmol/L (3.5-5.1); Sodium 138 mmol/L (136-145)
[2023-09-10 04:25] LABS: Anion Gap 9 (5-15); Calcium 7.7 mg/dL (8.7-10.4); Carbon Dioxide 26 mmol/L (20-30)
[2023-09-10 04:30] LABS: BUN/Creatinine Ratio 14.2 (10.0-20.0); Blood Urea Nitrogen 50 mg/dL (9-23); Glucose 134 mg/dL (74-106)
[2023-09-10 06:48] LABS: Band Neutrophils % (manual) 7; Eosinophils % (manual) 11 (0-7); Lymphocytes % (manual) 8 (10.0-50.0); Monocytes % (manual) 8 (0-12)
[2023-09-10 06:49] LABS: Anisocytosis Slight; Platelet Estimate Decreased
[2023-09-10] MEDS: SODIUM CHL 0.9% 1000 ML BAG XX ONE (07:00)
[2023-09-10 08:00] LABS: Base Excess -1.9 mmol/L (-2.0-2.0)
[2023-09-10] MEDS ORDERED: Jevity 1.2 Cal/Fiber 1 Liter GT SCH (10:30)
[2023-09-10] MEDS: Nepro With Carb Steady 1 Liter Bottle GT SCH (16:07)
[2023-09-10] MEDS: EPOETIN ALFA-EPBX 10,000 UNIT/1ML VIAL SC ONE (21:49)
[2023-09-11] VITALS (103 sets, daily range): BP systolic 88–137; BP diastolic 31–73; PULSE 57–108; RESP 10–30; TEMP 97.6–100.4; O2SAT 98–100
[2023-09-11] MEDS ORDERED: diphenhdrAMINE HCL 50 MG/1 ML VL IV PRN (02:30)
[2023-09-11 03:51] LABS: Basophils # (auto) 0 10 ^3/uL (0-0.2); Basophils % (auto) 0.3 % (0.0-2.0); Hemoglobin 7.7 g/dL (13.5-17.5); Monocytes # (auto) 1.1 10 ^3/uL (0-1.3)
[2023-09-11 03:54] LABS: Eosinophils % (auto) 9.9 % (0.0-7.0); Hematocrit 22.5 % (41.0-53.0); Lymphocytes # (auto) 0.6 10 ^3/uL (0.4-5.4); Lymphocytes % (auto) 6.3 % (10.0-50.0); Mean Corpuscular Hemoglobin 31.9 pg (28.0-32.0); Mean Corpuscular Hgb Conc. 34.3 g/dL (32.0-36.0); Mean Corpuscular Volume 93.2 fL (80.0-100.0); Neutrophils # (auto) 7.4 10 ^3/uL (1.6-8.6); Neutrophils % (auto) 72.5 % (37.0-80.0); Nucleated Red Blood Cells % 1.8 %; Platelet Count (auto) 109 10^3/uL (140-450); Red Blood Cells 2.41 10^6/uL (4.5-5.90); Red Cell Distribution Width 19.6 % (11.8-14.3); White Blood Cell 10.2 10^3/uL (4.4-10.8)
[2023-09-11 04:07] LABS: Alanine Aminotransferase 35 U/L (7-40); Alkaline Phosphatase 105 U/L (46-116); Anion Gap 11 (5-15); Aspartate Aminotransferase 37 U/L (13-40); BUN/Creatinine Ratio 12.3 (10.0-20.0); Calcium 8.2 mg/dL (8.7-10.4); Carbon Dioxide 24 mmol/L (20-30); Chloride 103 mmol/L (98-107); Glucose 155 mg/dL (74-106); Magnesium 2.3 mg/dL (1.6-2.6); Potassium 4.4 mmol/L (3.5-5.1); Sodium 138 mmol/L (136-145)
[2023-09-11 04:08] LABS: Bilirubin, Total 0.4 mg/dL (0.2-1.0); Total Protein 5.9 g/dL (5.7-8.2)
[2023-09-11 04:14] LABS: Blood Urea Nitrogen 40 mg/dL (9-23)
[2023-09-11] MEDS: HYDROCORTISONE SOD SUCC 100 MG/2ML INJ VIAL IV ONE (06:03)
[2023-09-11 08:11] LABS: Base Excess -2.3 mmol/L (-2.0-2.0)
[2023-09-11] MEDS: FAMOTIDINE (10MG/ML) 2ML VL IV SCH (11:02)
[2023-09-11] MEDS: ACETAMINOPHEN 650 mg PER 20.3 mL UD GT ONE (11:02)
[2023-09-11] MEDS ORDERED: methylPREDNISolone SOD SUCC 125 MG/2 ML VL IV SCH (14:00)
[2023-09-11] MEDS: diphenhdrAMINE HCL 50 MG/1 ML VL IV PRN (14:14)
[2023-09-12] VITALS (108 sets, daily range): BP systolic 94–147; BP diastolic 39–61; PULSE 82–118; RESP 10–33; TEMP 96.1–98.6; O2SAT 94–100
[2023-09-12 04:03] LABS: Basophils # (auto) 0 10 ^3/uL (0-0.2); Basophils % (auto) 0.4 % (0.0-2.0); Eosinophils # (auto) 0.9 10 ^3/uL (0-0.8); Hematocrit 22.3 % (41.0-53.0); Hemoglobin 7.5 g/dL (13.5-17.5); Lymphocytes # (auto) 0.5 10 ^3/uL (0.4-5.4); Red Blood Cells 2.36 10^6/uL (4.5-5.90); White Blood Cell 9.9 10^3/uL (4.4-10.8)
[2023-09-12 04:06] LABS: Eosinophils % (auto) 9.2 % (0.0-7.0); Lymphocytes % (auto) 5.5 % (10.0-50.0); Mean Corpuscular Hgb Conc. 33.9 g/dL (32.0-36.0); Mean Corpuscular Volume 94.4 fL (80.0-100.0); Monocytes # (auto) 0.9 10 ^3/uL (0-1.3); Monocytes % (auto) 9.4 % (0.0-12.0); Neutrophils # (auto) 7.5 10 ^3/uL (1.6-8.6); Neutrophils % (auto) 75.5 % (37.0-80.0); Nucleated Red Blood Cells % 0.6 %; Platelet Count (auto) 145 10^3/uL (140-450); Red Cell Distribution Width 20.4 % (11.8-14.3)
[2023-09-12 04:32] LABS: Chloride 103 mmol/L (98-107); Potassium 4.3 mmol/L (3.5-5.1); Sodium 138 mmol/L (136-145)
[2023-09-12 04:33] LABS: Anion Gap 14 (5-15); Calcium 7.9 mg/dL (8.7-10.4); Carbon Dioxide 21 mmol/L (20-30)
[2023-09-12 04:38] LABS: BUN/Creatinine Ratio 13.2 (10.0-20.0); Glucose 136 mg/dL (74-106)
[2023-09-12 04:39] LABS: Blood Urea Nitrogen 52 mg/dL (9-23)
[2023-09-12 07:13] LABS: Base Excess -4.6 mmol/L (-2.0-2.0)
[2023-09-13] VITALS (96 sets, daily range): BP systolic 108–150; BP diastolic 45–73; PULSE 78–135; RESP 11–33; TEMP 98.1–99.8; O2SAT 99–100
[2023-09-13 03:33] LABS: Basophils # (auto) 0 10 ^3/uL (0-0.2); Basophils % (auto) 0.4 % (0.0-2.0); Eosinophils # (auto) 0.8 10 ^3/uL (0-0.8); Eosinophils % (auto) 9.9 % (0.0-7.0); Hematocrit 23.7 % (41.0-53.0); Lymphocytes # (auto) 0.6 10 ^3/uL (0.4-5.4); Lymphocytes % (auto) 7.6 % (10.0-50.0); Mean Corpuscular Hemoglobin 32.4 pg (28.0-32.0); Mean Corpuscular Hgb Conc. 33.7 g/dL (32.0-36.0); Mean Corpuscular Volume 96.2 fL (80.0-100.0); Monocytes # (auto) 0.8 10 ^3/uL (0-1.3); Monocytes % (auto) 10.2 % (0.0-12.0); Neutrophils # (auto) 5.7 10 ^3/uL (1.6-8.6); Neutrophils % (auto) 71.9 % (37.0-80.0); Nucleated Red Blood Cells % 0.5 %; Platelet Count (auto) 134 10^3/uL (140-450); Red Blood Cells 2.47 10^6/uL (4.5-5.90); White Blood Cell 7.9 10^3/uL (4.4-10.8)
[2023-09-13 03:34] LABS: Red Cell Distribution Width 21.9 % (11.8-14.3)
[2023-09-13 03:40] LABS: Chloride 105 mmol/L (98-107); Potassium 4.5 mmol/L (3.5-5.1); Sodium 139 mmol/L (136-145)
[2023-09-13 03:41] LABS: Anion Gap 12 (5-15); Carbon Dioxide 22 mmol/L (20-30)
[2023-09-13 03:42] LABS: Calcium 8.1 mg/dL (8.7-10.4)
[2023-09-13 03:46] LABS: Glucose 140 mg/dL (74-106)
[2023-09-13 03:47] LABS: BUN/Creatinine Ratio 12.2 (10.0-20.0)
[2023-09-13 03:54] LABS: Blood Urea Nitrogen 40 mg/dL (9-23)
[2023-09-13 07:04] LABS: Base Excess -2.7 mmol/L (-2.0-2.0)
[2023-09-13] MEDS: SODIUM CHL 0.9% 1000 ML BAG XX ONE (17:15)
[2023-09-14] VITALS (101 sets, daily range): BP systolic 98–151; BP diastolic 45–69; PULSE 82–105; RESP 14–34; TEMP 97.6–98.2; O2SAT 97–100
[2023-09-14 03:51] LABS: Basophils # (auto) 0 10 ^3/uL (0-0.2); Basophils % (auto) 0.5 % (0.0-2.0); Eosinophils # (auto) 0.9 10 ^3/uL (0-0.8); Eosinophils % (auto) 11.2 % (0.0-7.0); Hematocrit 24.5 % (41.0-53.0); Hemoglobin 8.4 g/dL (13.5-17.5); Lymphocytes # (auto) 0.6 10 ^3/uL (0.4-5.4); Lymphocytes % (auto) 7.4 % (10.0-50.0); Mean Corpuscular Hemoglobin 32.9 pg (28.0-32.0); Mean Corpuscular Hgb Conc. 34.1 g/dL (32.0-36.0); Mean Corpuscular Volume 96.4 fL (80.0-100.0); Monocytes % (auto) 12.5 % (0.0-12.0); Neutrophils # (auto) 5.2 10 ^3/uL (1.6-8.6); Neutrophils % (auto) 68.4 % (37.0-80.0); Nucleated Red Blood Cells % 0.5 %; Platelet Count (auto) 150 10^3/uL (140-450); Red Blood Cells 2.55 10^6/uL (4.5-5.90); White Blood Cell 7.6 10^3/uL (4.4-10.8)
[2023-09-14 03:55] LABS: Red Cell Distribution Width 22.4 % (11.8-14.3)
[2023-09-14 04:09] LABS: Alanine Aminotransferase 50 U/L (7-40); Albumin 2.8 g/dL (3.2-4.8); Alkaline Phosphatase 92 U/L (46-116); Anion Gap 13 (5-15); Aspartate Aminotransferase 69 U/L (13-40); BUN/Creatinine Ratio 12.2 (10.0-20.0); Bilirubin, Total 0.4 mg/dL (0.2-1.0); Calcium 8.1 mg/dL (8.7-10.4); Carbon Dioxide 22 mmol/L (20-30); Chloride 104 mmol/L (98-107); Glucose 115 mg/dL (74-106); Potassium 4.3 mmol/L (3.5-5.1); Sodium 139 mmol/L (136-145)
[2023-09-14 04:21] LABS: Blood Urea Nitrogen 51 mg/dL (9-23)
[2023-09-14 07:25] LABS: Base Excess -6.5 mmol/L (-2.0-2.0)
[2023-09-14] MEDS: metroNIDAZOLE 500MG/100ML 100 ML IV SCH (15:09)
[2023-09-14] MEDS: levoFLOXacin 500MG 100 ML IV ONE (16:50)
[2023-09-14] MEDS: EPOETIN ALFA-EPBX 10,000 UNIT/1ML VIAL SC ONE (21:05)
[2023-09-15] VITALS (112 sets, daily range): BP systolic 96–132; BP diastolic 43–71; PULSE 77–112; RESP 14–29; TEMP 94.1–99.3; O2SAT 97–100
[2023-09-15 04:54] LABS: Hematocrit 25.3 % (41.0-53.0); Hemoglobin 8.6 g/dL (13.5-17.5); Mean Corpuscular Hemoglobin 33.2 pg (28.0-32.0); Mean Corpuscular Hgb Conc. 34.2 g/dL (32.0-36.0); Mean Corpuscular Volume 97.1 fL (80.0-100.0); Platelet Count (auto) 142 10^3/uL (140-450); White Blood Cell 6.7 10^3/uL (4.4-10.8)
[2023-09-15 04:57] LABS: Chloride 103 mmol/L (98-107); Potassium 4.1 mmol/L (3.5-5.1); Sodium 137 mmol/L (136-145)
[2023-09-15 04:58] LABS: Anion Gap 11 (5-15); Calcium 8.4 mg/dL (8.7-10.4); Carbon Dioxide 23 mmol/L (20-30)
[2023-09-15 05:03] LABS: BUN/Creatinine Ratio 10.9 (10.0-20.0); Glucose 89 mg/dL (74-106)
[2023-09-15 05:11] LABS: Red Cell Distribution Width 22.8 % (11.8-14.3)
[2023-09-15 05:12] LABS: Basophils % (manual) 0 (0.0-2.0); Blast Cells 0; Blood Urea Nitrogen 37 mg/dL (9-23); Metamyelocytes % 0; Myelocytes % 0; Promyelocytes % 0; Reactive Lymphocytes 0
[2023-09-15 06:11] LABS: Band Neutrophils % (manual) 14; Eosinophils % (manual) 4 (0-7); Lymphocytes % (manual) 16 (10.0-50.0); Monocytes % (manual) 7 (0-12)
[2023-09-15 06:12] LABS: Anisocytosis Slight; Platelet Estimate Adequate
[2023-09-15 06:17] LABS: Tear Drop Cells FEW
[2023-09-15 08:15] LABS: Base Excess -6.3 mmol/L (-2.0-2.0)
[2023-09-15] MEDS: SODIUM CHL 0.9% 1000 ML BAG XX ONE (08:30)
[2023-09-15] MEDS: methylPREDNISolone SOD SUCC 40 MG/ML VL IV ONE (12:53)
[2023-09-15] MEDS: methylPREDNISolone SOD SUCC 40 MG/ML VL IV SCH (21:58)
[2023-09-16] VITALS (100 sets, daily range): BP systolic 87–163; BP diastolic 46–69; PULSE 60–96; RESP 23–30; TEMP 97.1–98.9; O2SAT 95–100
[2023-09-16 04:49] LABS: Hematocrit 25.5 % (41.0-53.0); Hemoglobin 8.5 g/dL (13.5-17.5); Mean Corpuscular Hemoglobin 32.5 pg (28.0-32.0); Mean Corpuscular Hgb Conc. 33.4 g/dL (32.0-36.0); Mean Corpuscular Volume 97.3 fL (80.0-100.0); Platelet Count (auto) 138 10^3/uL (140-450); Red Blood Cells 2.62 10^6/uL (4.5-5.90); White Blood Cell 7.8 10^3/uL (4.4-10.8)
[2023-09-16 04:53] LABS: Red Cell Distribution Width 22.2 % (11.8-14.3)
[2023-09-16 04:54] LABS: Basophils % (manual) 0 (0.0-2.0); Blast Cells 0; Metamyelocytes % 0; Myelocytes % 0; Promyelocytes % 0; Reactive Lymphocytes 0
[2023-09-16 06:34] LABS: Alanine Aminotransferase 56 U/L (7-40); Alkaline Phosphatase 94 U/L (46-116); Anion Gap 16 (5-15); BUN/Creatinine Ratio 12.1 (10.0-20.0); Calcium 8.4 mg/dL (8.7-10.4); Carbon Dioxide 20 mmol/L (20-30); Chloride 102 mmol/L (98-107); Glucose 160 mg/dL (74-106); Potassium 4.8 mmol/L (3.5-5.1); Sodium 138 mmol/L (136-145)
[2023-09-16 06:35] LABS: Albumin 3.2 g/dL (3.2-4.8); Aspartate Aminotransferase 48 U/L (13-40)
[2023-09-16 06:36] LABS: Bilirubin, Total 0.4 mg/dL (0.2-1.0); Total Protein 5.8 g/dL (5.7-8.2)
[2023-09-16 06:46] LABS: Blood Urea Nitrogen 51 mg/dL (9-23)
[2023-09-16 07:34] LABS: Base Excess -5.1 mmol/L (-2.0-2.0)
[2023-09-16 07:35] LABS: Band Neutrophils % (manual) 16; Eosinophils % (manual) 1 (0-7); Lymphocytes % (manual) 19 (10.0-50.0); Monocytes % (manual) 3 (0-12); Platelet Estimate Decreased
[2023-09-16 07:36] LABS: Anisocytosis Slight
[2023-09-16] MEDS: levoFLOXacin 250MG 50 ML IV SCH (08:57)
[2023-09-16 09:12] LABS: INR 1.27 (0.9-1.15); Prothrombin Time 13.2 sec (9.3-11.8)
[2023-09-16] MEDS ORDERED: DexAMETHasone SOD PHOS 10MG/1ML VIAL INJ ONE (11:21)
[2023-09-16] MEDS ORDERED: MIDAZOLAM HCL 2MG/2ML 2ml VIAL (1mg/ml) ONE ×2 (11:21→12:28)
[2023-09-16] MEDS ORDERED: HYDROmorphone HCL 2 MG/ML VL/or syr ONE (11:21)
[2023-09-16] MEDS ORDERED: fentaNYL CITRATE 100 MCG/2 ML VL ONE (11:21)
[2023-09-16] MEDS: LIDOCAINE 1% HCL (LOCAL ANESTH.) INJ 20ML MDV ONE (12:51)
[2023-09-16] MEDS: SODIUM CHL 0.9% 1000 ML BAG XX ONE (15:00)
[2023-09-16] MEDS: PROPOFOL 100 ML IV SCH (17:00)
[2023-09-16] MEDS: PROPOFOL 100 ML IV ONE (17:09)
[2023-09-17] VITALS (106 sets, daily range): BP systolic 85–165; BP diastolic 42–74; PULSE 60–99; RESP 17–37; TEMP 97.9–99.1; O2SAT 90–100
[2023-09-17 03:54] LABS: Mean Corpuscular Volume 96.2 fL (80.0-100.0); White Blood Cell 7.6 10^3/uL (4.4-10.8)
[2023-09-17 03:55] LABS: Hematocrit 23.4 % (41.0-53.0); Mean Corpuscular Hemoglobin 32.9 pg (28.0-32.0); Mean Corpuscular Hgb Conc. 34.2 g/dL (32.0-36.0); Platelet Count (auto) 121 10^3/uL (140-450); Red Blood Cells 2.43 10^6/uL (4.5-5.90)
[2023-09-17 04:01] LABS: Red Cell Distribution Width 22.1 % (11.8-14.3)
[2023-09-17 04:03] LABS: Basophils % (manual) 0 (0.0-2.0); Blast Cells 0; Eosinophils % (manual) 0 (0-7); Metamyelocytes % 0; Promyelocytes % 0; Reactive Lymphocytes 0
[2023-09-17 04:10] LABS: Chloride 101 mmol/L (98-107); Potassium 4.8 mmol/L (3.5-5.1); Sodium 137 mmol/L (136-145)
[2023-09-17 04:11] LABS: Anion Gap 12 (5-15); Calcium 8.4 mg/dL (8.7-10.4); Carbon Dioxide 24 mmol/L (20-30)
[2023-09-17 04:16] LABS: BUN/Creatinine Ratio 12.1 (10.0-20.0); Glucose 148 mg/dL (74-106)
[2023-09-17 04:21] LABS: Blood Urea Nitrogen 39 mg/dL (9-23)
[2023-09-17 04:52] LABS: Anisocytosis Slight; Band Neutrophils % (manual) 8; Lymphocytes % (manual) 22 (10.0-50.0); Monocytes % (manual) 10 (0-12); Myelocytes % 1; Platelet Estimate Decreased; Smudge Cells 3 /100 WBC
[2023-09-17 07:50] LABS: Base Excess -3.4 mmol/L (-2.0-2.0)
[2023-09-18] VITALS (98 sets, daily range): BP systolic 120–179; BP diastolic 54–96; PULSE 79–106; RESP 13–30; TEMP 98.7–99.8; O2SAT 90–100
[2023-09-18] MEDS: DexmedeTOMIDine 4 ML IV ONE (02:55)
[2023-09-18 04:16] LABS: Hematocrit 27.6 % (41.0-53.0); Hemoglobin 8.9 g/dL (13.5-17.5); Mean Corpuscular Hemoglobin 31.4 pg (28.0-32.0); Mean Corpuscular Hgb Conc. 32.3 g/dL (32.0-36.0); Mean Corpuscular Volume 97.2 fL (80.0-100.0); Platelet Count (auto) 127 10^3/uL (140-450); Red Blood Cells 2.83 10^6/uL (4.5-5.90); White Blood Cell 10.6 10^3/uL (4.4-10.8)
[2023-09-18 04:22] LABS: Chloride 97 mmol/L (98-107); Potassium 3.4 mmol/L (3.5-5.1); Sodium 138 mmol/L (136-145)
[2023-09-18 04:23] LABS: Anion Gap 21 (5-15); Calcium 8.5 mg/dL (8.7-10.4); Carbon Dioxide 20 mmol/L (20-30)
[2023-09-18 04:28] LABS: BUN/Creatinine Ratio 12.3 (10.0-20.0); Blood Urea Nitrogen 38 mg/dL (9-23); Glucose 154 mg/dL (74-106)
[2023-09-18 04:30] LABS: Red Cell Distribution Width 21.3 % (11.8-14.3)
[2023-09-18 04:31] LABS: Basophils % (manual) 0 (0.0-2.0); Blast Cells 0; Metamyelocytes % 0; Myelocytes % 0; Promyelocytes % 0; Reactive Lymphocytes 0
[2023-09-18 05:32] LABS: Anisocytosis Slight; Band Neutrophils % (manual) 6; Eosinophils % (manual) 2 (0-7); Lymphocytes % (manual) 16 (10.0-50.0); Monocytes % (manual) 14 (0-12); Platelet Estimate Decreased
[2023-09-18 08:56] LABS: Base Excess -0.8 mmol/L (-2.0-2.0)
[2023-09-18] MEDS: levoFLOXacin 250MG 50 ML IV SCH (10:15)
[2023-09-19] VITALS (105 sets, daily range): BP systolic 131–182; BP diastolic 64–94; PULSE 74–120; RESP 14–30; TEMP 98.9–100; O2SAT 85–100
[2023-09-19] MEDS: LOPERAMIDE 1 mg/7.5ml ORAL soln GT PRN (00:16)
[2023-09-19 08:28] LABS: Base Excess -1.4 mmol/L (-2.0-2.0)
[2023-09-19] MEDS: CATHFLO ACTIVASE (ALTEPLASE) 2 MG VIAL IV ONE (09:04)
[2023-09-19] MEDS: levoFLOXacin 250MG 50 ML IV SCH (11:54)
[2023-09-20] VITALS (107 sets, daily range): BP systolic 134–168; BP diastolic 57–99; PULSE 81–109; RESP 16–38; TEMP 98.6–100.7; O2SAT 90–100
[2023-09-20 03:55] LABS: Basophils # (auto) 0.1 10 ^3/uL (0-0.2); Basophils % (auto) 0.7 % (0.0-2.0); Eosinophils # (auto) 0.1 10 ^3/uL (0-0.8); Hematocrit 28.4 % (41.0-53.0); Hemoglobin 9.5 g/dL (13.5-17.5); Lymphocytes # (auto) 1.8 10 ^3/uL (0.4-5.4); Lymphocytes % (auto) 17.7 % (10.0-50.0); Mean Corpuscular Hemoglobin 32.4 pg (28.0-32.0); Mean Corpuscular Hgb Conc. 33.4 g/dL (32.0-36.0); Mean Corpuscular Volume 97.2 fL (80.0-100.0); Monocytes # (auto) 1.8 10 ^3/uL (0-1.3); Monocytes % (auto) 17.9 % (0.0-12.0); Neutrophils # (auto) 6.4 10 ^3/uL (1.6-8.6); Neutrophils % (auto) 62.7 % (37.0-80.0); Nucleated Red Blood Cells % 0.1 %; Platelet Count (auto) 174 10^3/uL (140-450); Red Blood Cells 2.92 10^6/uL (4.5-5.90); White Blood Cell 10.2 10^3/uL (4.4-10.8)
[2023-09-20 04:04] LABS: Chloride 105 mmol/L (98-107); Potassium 2.6 mmol/L (3.5-5.1); Sodium 143 mmol/L (136-145)
[2023-09-20 04:05] LABS: Anion Gap 14 (5-15); Calcium 8.4 mg/dL (8.7-10.4); Carbon Dioxide 24 mmol/L (20-30)
[2023-09-20 04:10] LABS: BUN/Creatinine Ratio 18.9 (10.0-20.0); Blood Urea Nitrogen 54 mg/dL (9-23); Glucose 180 mg/dL (74-106)
[2023-09-20] MEDS: POTASSIUM CHL 20MEQ/100ML 100 ML IV ONE (05:23)
[2023-09-20] MEDS: ACETAMINOPHEN 650 mg PER 20.3 mL UD GT PRN (06:25)
[2023-09-20] MEDS: POTASSIUM CHL 20MEQ/100ML 100 ML IV SCH (07:45)
[2023-09-20] MEDS: metroNIDAZOLE 500 MG TAB PO SCH (13:44)
[2023-09-20] MEDS: FLORASTOR (S. BOULARDII) 250 MG CAP PO ONE (14:49)
[2023-09-21] VITALS (103 sets, daily range): BP systolic 137–174; BP diastolic 62–102; PULSE 87–118; RESP 15–57; TEMP 98.9–100.5; O2SAT 89–99
[2023-09-21 04:09] LABS: Alanine Aminotransferase 17 U/L (7-40); Alkaline Phosphatase 105 U/L (46-116); Anion Gap 16 (5-15); BUN/Creatinine Ratio 25.9 (10.0-20.0); Blood Urea Nitrogen 57 mg/dL (9-23); Calcium 8.6 mg/dL (8.7-10.4); Carbon Dioxide 23 mmol/L (20-30); Chloride 108 mmol/L (98-107); Magnesium 1.8 mg/dL (1.6-2.6); Potassium 2.9 mmol/L (3.5-5.1); Sodium 147 mmol/L (136-145)
[2023-09-21 04:10] LABS: Albumin 3.5 g/dL (3.2-4.8); Aspartate Aminotransferase < 8 U/L (13-40); Bilirubin, Total 0.6 mg/dL (0.2-1.0); Total Protein 6.8 g/dL (5.7-8.2)
[2023-09-21 04:16] LABS: Glucose 309 mg/dL (74-106)
[2023-09-21] MEDS: POTASSIUM CHL 20MEQ/100ML 100 ML IV SCH (07:24)
[2023-09-21 08:51] LABS: Base Excess 2.7 mmol/L (-2.0-2.0)
[2023-09-21] MEDS: FLORASTOR (S. BOULARDII) 250 MG CAP PO SCH (09:16)
[2023-09-21] MEDS: POTASSIUM EFFERVESENT TAB 25 MEQ GT ONE (10:23)
[2023-09-21] MEDS: FREE WATER GT SCH (13:56)
[2023-09-21] MEDS: HEPARIN SODIUM (PORCINE) 5000 UNITS/ML 1ML VIAL SC ONE (15:05)
[2023-09-21] MEDS: BUMETANIDE 2.5mg/10ml (0.25 mg/ml) INJ IV SCH (17:17)
[2023-09-21] MEDS: INSULIN LANTUS (GLARGINE) 1 /0.01ml (100units/ml) SC SCH (21:31)
[2023-09-21] MEDS: HEPARIN SODIUM (PORCINE) 5000 UNITS/ML 1ML VIAL SC SCH (21:31)
[2023-09-22] VITALS (101 sets, daily range): BP systolic 126–187; BP diastolic 62–100; PULSE 86–124; RESP 16–37; TEMP 98.4–99.9; O2SAT 86–99
[2023-09-22 04:21] LABS: Basophils # (auto) 0.2 10 ^3/uL (0-0.2); Basophils % (auto) 1.2 % (0.0-2.0); Eosinophils # (auto) 0.1 10 ^3/uL (0-0.8); Eosinophils % (auto) 0.7 % (0.0-7.0); Hematocrit 31.2 % (41.0-53.0); Lymphocytes # (auto) 2.3 10 ^3/uL (0.4-5.4); Lymphocytes % (auto) 15.7 % (10.0-50.0); Mean Corpuscular Hemoglobin 31.8 pg (28.0-32.0); Mean Corpuscular Hgb Conc. 32.1 g/dL (32.0-36.0); Monocytes # (auto) 1.8 10 ^3/uL (0-1.3); Monocytes % (auto) 12.3 % (0.0-12.0); Neutrophils # (auto) 10.4 10 ^3/uL (1.6-8.6); Neutrophils % (auto) 70.1 % (37.0-80.0); Nucleated Red Blood Cells % 0.1 %; Platelet Count (auto) 245 10^3/uL (140-450); Red Blood Cells 3.15 10^6/uL (4.5-5.90); White Blood Cell 14.8 10^3/uL (4.4-10.8)
[2023-09-22 04:27] LABS: Red Cell Distribution Width 20.2 % (11.8-14.3)
[2023-09-22 04:32] LABS: Anion Gap 12 (5-15); Carbon Dioxide 26 mmol/L (20-30); Chloride 113 mmol/L (98-107); Potassium 3.6 mmol/L (3.5-5.1); Sodium 151 mmol/L (136-145)
[2023-09-22 04:38] LABS: BUN/Creatinine Ratio 38.5 (10.0-20.0); Glucose 254 mg/dL (74-106)
[2023-09-22 04:48] LABS: Blood Urea Nitrogen 67 mg/dL (9-23)
[2023-09-22] MEDS ORDERED: VASOPRESSIN 40 UNITS in D5W 5% 198 ML IV SCH (09:15)
[2023-09-22] MEDS ORDERED: VANCOMYCIN PER PHARMACY 0 MG IV SCH (11:00)
[2023-09-22] MEDS: VANCOMYCIN 1GM/200ML 200 ML IV ONE (13:59)
[2023-09-22] MEDS: METOPROLOL TARTRATE 25 MG TAB PO ONE (13:59)
[2023-09-22] MEDS: SOD CHL 0.45% 1,000 ML IV SCH (15:25)
[2023-09-22] MEDS: POTASSIUM CHL 20MEQ/100ML 100 ML IV SCH (15:35)
[2023-09-22] MEDS: hydrALAZINE HCL 20 MG/ML VL IV PRN (15:36)
[2023-09-22] MEDS: POTASSIUM CHL 20MEQ/100ML 200 ML IV ONE (15:37)
[2023-09-22] MEDS: METOPROLOL TARTRATE 25 MG TAB PO SCH (22:21)
[2023-09-22] MEDS: INSULIN LANTUS (GLARGINE) 1 /0.01ml (100units/ml) SC SCH (22:21)
[2023-09-23] VITALS (96 sets, daily range): BP systolic 137–188; BP diastolic 69–98; PULSE 82–128; RESP 10–58; TEMP 98.9–99.4; O2SAT 88–100
[2023-09-23 04:15] LABS: Basophils # (auto) 0.2 10 ^3/uL (0-0.2); Basophils % (auto) 1.3 % (0.0-2.0); Eosinophils # (auto) 0.1 10 ^3/uL (0-0.8); Eosinophils % (auto) 0.9 % (0.0-7.0); Hematocrit 33.3 % (41.0-53.0); Hemoglobin 10.5 g/dL (13.5-17.5); Lymphocytes # (auto) 1.4 10 ^3/uL (0.4-5.4); Lymphocytes % (auto) 8.8 % (10.0-50.0); Mean Corpuscular Hemoglobin 31.2 pg (28.0-32.0); Mean Corpuscular Hgb Conc. 31.5 g/dL (32.0-36.0); Mean Corpuscular Volume 98.9 fL (80.0-100.0); Monocytes # (auto) 0.6 10 ^3/uL (0-1.3); Monocytes % (auto) 3.7 % (0.0-12.0); Neutrophils # (auto) 13.9 10 ^3/uL (1.6-8.6); Neutrophils % (auto) 85.3 % (37.0-80.0); Platelet Count (auto) 258 10^3/uL (140-450); Red Blood Cells 3.36 10^6/uL (4.5-5.90); Red Cell Distribution Width 19.5 % (11.8-14.3); White Blood Cell 16.2 10^3/uL (4.4-10.8)
[2023-09-23 04:30] LABS: Chloride 118 mmol/L (98-107); Potassium 3.7 mmol/L (3.5-5.1); Sodium 151 mmol/L (136-145)
[2023-09-23 04:31] LABS: Anion Gap 9 (5-15); Calcium 8.9 mg/dL (8.7-10.4); Carbon Dioxide 24 mmol/L (20-30)
[2023-09-23 04:36] LABS: BUN/Creatinine Ratio 43.8 (10.0-20.0); Blood Urea Nitrogen 63 mg/dL (9-23); Glucose 271 mg/dL (74-106)
[2023-09-23 09:16] LABS: Base Excess -1.8 mmol/L (-2.0-2.0)
[2023-09-23] MEDS: POTASSIUM CHL 20MEQ/100ML 100 ML IV SCH (09:54)
[2023-09-23] MEDS ORDERED: SOD CHL 0.45% 1,000 ML IV SCH (12:15)
[2023-09-23] MEDS: VANCOMYCIN 500 MG in D5W 5% 100 ML IV ONE (13:33)
[2023-09-23] MEDS ORDERED: DEXTROSE (50%) 50ML SYRG IV PRN (15:30)
[2023-09-23] MEDS: PSYLLIUM PWD 5.8GM PKG GT ONE (15:30)
[2023-09-23] MEDS: ACCU-CHEK COMFORT CURVE STRIP VI SCH (17:28)
[2023-09-23] MEDS: InsuLIN REG 1unit/0.01ml Soln (100units/ml) SC SCH (17:29)
[2023-09-23] MEDS: METOPROLOL TARTRATE 50 MG TAB PO SCH (18:15)
[2023-09-23] MEDS: D5W 5% 1,000 ML IV SCH (18:30)
[2023-09-23] MEDS: PSYLLIUM PWD 5.8GM PKG GT SCH (21:48)
[2023-09-24] VITALS (107 sets, daily range): BP systolic 131–182; BP diastolic 69–95; PULSE 85–121; RESP 11–43; TEMP 97.9–101; O2SAT 89–100
[2023-09-24] MEDS: METOPROLOL TARTRATE 25 MG TAB PO ONE (01:05)
[2023-09-24 03:57] LABS: Basophils # (auto) 0.2 10 ^3/uL (0-0.2); Basophils % (auto) 1.1 % (0.0-2.0); Eosinophils # (auto) 0.3 10 ^3/uL (0-0.8); Eosinophils % (auto) 1.9 % (0.0-7.0); Hematocrit 31.9 % (41.0-53.0); Lymphocytes # (auto) 1.7 10 ^3/uL (0.4-5.4); Lymphocytes % (auto) 9.8 % (10.0-50.0); Mean Corpuscular Hemoglobin 31.2 pg (28.0-32.0); Mean Corpuscular Hgb Conc. 31.3 g/dL (32.0-36.0); Mean Corpuscular Volume 99.6 fL (80.0-100.0); Monocytes # (auto) 1.5 10 ^3/uL (0-1.3); Monocytes % (auto) 8.9 % (0.0-12.0); Neutrophils # (auto) 13.4 10 ^3/uL (1.6-8.6); Neutrophils % (auto) 78.3 % (37.0-80.0); Platelet Count (auto) 257 10^3/uL (140-450); Red Cell Distribution Width 19.5 % (11.8-14.3); White Blood Cell 17.1 10^3/uL (4.4-10.8)
[2023-09-24 04:01] LABS: Chloride 120 mmol/L (98-107); Potassium 3.8 mmol/L (3.5-5.1); Sodium 149 mmol/L (136-145)
[2023-09-24 04:02] LABS: Anion Gap 7 (5-15); Calcium 8.8 mg/dL (8.7-10.4); Carbon Dioxide 22 mmol/L (20-30)
[2023-09-24 04:07] LABS: BUN/Creatinine Ratio 44.8 (10.0-20.0); Glucose 261 mg/dL (74-106)
[2023-09-24 04:12] LABS: Blood Urea Nitrogen 52 mg/dL (9-23)
[2023-09-24 08:30] LABS: Base Excess -2.4 mmol/L (-2.0-2.0)
[2023-09-24] MEDS: POTASSIUM CHL 20MEQ/100ML 100 ML IV ONE (10:04)
[2023-09-24] MEDS: D5W 5% 1,000 ML IV SCH (10:31)
[2023-09-24] MEDS: VANCOMYCIN 1GM/200ML 200 ML IV ONE (12:38)
[2023-09-24] MEDS: FREE WATER GT SCH (12:45)
[2023-09-24] MEDS: IPRATROPIUM BROM 0.5 MG/2.5ML INH SOL NEB SCH (18:45)
[2023-09-24] MEDS: LEVALBUTEROL HCL 1.25 MG/3 ML NEB NEB SCH (18:45)
[2023-09-25] VITALS (106 sets, daily range): BP systolic 121–186; BP diastolic 49–94; PULSE 81–132; RESP 15–55; TEMP 99.3–102; O2SAT 91–100
[2023-09-25 03:55] LABS: Basophils # (auto) 0.2 10 ^3/uL (0-0.2); Basophils % (auto) 1.3 % (0.0-2.0); Eosinophils # (auto) 0.3 10 ^3/uL (0-0.8); Eosinophils % (auto) 1.8 % (0.0-7.0); Hematocrit 31.3 % (41.0-53.0); Lymphocytes # (auto) 1.6 10 ^3/uL (0.4-5.4); Lymphocytes % (auto) 9.9 % (10.0-50.0); Mean Corpuscular Hemoglobin 31.7 pg (28.0-32.0); Mean Corpuscular Hgb Conc. 31.8 g/dL (32.0-36.0); Mean Corpuscular Volume 99.6 fL (80.0-100.0); Monocytes # (auto) 1.4 10 ^3/uL (0-1.3); Monocytes % (auto) 9.1 % (0.0-12.0); Neutrophils # (auto) 12.4 10 ^3/uL (1.6-8.6); Neutrophils % (auto) 77.9 % (37.0-80.0); Nucleated Red Blood Cells % 0.1 %; Platelet Count (auto) 246 10^3/uL (140-450); Red Blood Cells 3.14 10^6/uL (4.5-5.90); Red Cell Distribution Width 18.6 % (11.8-14.3)
[2023-09-25 04:05] LABS: Alanine Aminotransferase 12 U/L (7-40); Albumin 3.5 g/dL (3.2-4.8); Alkaline Phosphatase 106 U/L (46-116); Anion Gap 12 (5-15); Aspartate Aminotransferase 14 U/L (13-40); BUN/Creatinine Ratio 42.1 (10.0-20.0); Bilirubin, Total 0.4 mg/dL (0.2-1.0); Blood Urea Nitrogen 48 mg/dL (9-23); Calcium 8.7 mg/dL (8.7-10.4); Carbon Dioxide 20 mmol/L (20-30); Chloride 118 mmol/L (98-107); Glucose 291 mg/dL (74-106); Sodium 150 mmol/L (136-145); Total Protein 6.7 g/dL (5.7-8.2)
[2023-09-25] MEDS: ACETYLCYSTEINE 10 %(100MG/ML) SOL 4ML NEB SCH (11:44)
[2023-09-25] MEDS: VANCOMYCIN 1GM/200ML 200 ML IV SCH (12:46)
[2023-09-25] MEDS: MEROPENEM 1GM IVPB 50 ML IV SCH (12:47)
[2023-09-25] MEDS: METOPROLOL TARTRATE 50 MG TAB PO SCH (16:45)
[2023-09-25] MEDS: INSULIN LANTUS (GLARGINE) 1 /0.01ml (100units/ml) SC SCH (22:20)
[2023-09-26] VITALS (64 sets, daily range): BP systolic 127–176; BP diastolic 63–95; PULSE 66–133; RESP 11–31; TEMP 98.5–100.5; O2SAT 93–100
[2023-09-26 04:21] LABS: Anion Gap 13 (5-15); Calcium 8.7 mg/dL (8.7-10.4); Carbon Dioxide 20 mmol/L (20-30); Chloride 119 mmol/L (98-107); Potassium 3.2 mmol/L (3.5-5.1); Sodium 152 mmol/L (136-145)
[2023-09-26 04:26] LABS: BUN/Creatinine Ratio 41.5 (10.0-20.0); Blood Urea Nitrogen 39 mg/dL (9-23); Glucose 274 mg/dL (74-106)
[2023-09-26 07:18] LABS: Eosinophils # (auto) 0.1 10 ^3/uL (0-0.8); Hemoglobin 9.9 g/dL (13.5-17.5); Lymphocytes # (auto) 0.7 10 ^3/uL (0.4-5.4); Mean Corpuscular Hgb Conc. 30.8 g/dL (32.0-36.0); Monocytes # (auto) 1.8 10 ^3/uL (0-1.3)
[2023-09-26] MEDS: POTASSIUM CHL 20MEQ/100ML 100 ML IV SCH (07:19)
[2023-09-26 07:20] LABS: Basophils # (auto) 0.1 10 ^3/uL (0-0.2); Basophils % (auto) 0.5 % (0.0-2.0); Eosinophils % (auto) 0.5 % (0.0-7.0); Hematocrit 32.2 % (41.0-53.0); Lymphocytes % (auto) 3.2 % (10.0-50.0); Mean Corpuscular Hemoglobin 30.9 pg (28.0-32.0); Mean Corpuscular Volume 100.6 fL (80.0-100.0); Monocytes % (auto) 7.8 % (0.0-12.0); Neutrophils # (auto) 20.5 10 ^3/uL (1.6-8.6); Platelet Count (auto) 250 10^3/uL (140-450); White Blood Cell 23.3 10^3/uL (4.4-10.8)
[2023-09-26] MEDS ORDERED: POTASSIUM CHL 20MEQ/100ML 100 ML IV SCH (08:15)
[2023-09-26] MEDS: D5W 5% 1,000 ML IV SCH (08:33)
[2023-09-26] MEDS: amLODIPine BESYLATE 5 MG TAB PO SCH (08:40)
[2023-09-26] MEDS: MORPHINE SULFATE INJ 2 MG/ml SYRG IV ONE ×2 (14:51→15:57)
[2023-09-26] MEDS: MORPHINE SULFATE INJ 2 MG/ml SYRG ONE (15:57)
[2023-09-27] VITALS (45 sets, daily range): BP systolic 141–170; BP diastolic 62–90; PULSE 78–112; RESP 15–30; TEMP 98.4–100.1; O2SAT 90–100
[2023-09-27 04:03] LABS: Basophils # (auto) 0.3 10 ^3/uL (0-0.2); Basophils % (auto) 1.9 % (0.0-2.0); Eosinophils # (auto) 0.6 10 ^3/uL (0-0.8); Eosinophils % (auto) 3.6 % (0.0-7.0); Hematocrit 31.2 % (41.0-53.0); Hemoglobin 9.7 g/dL (13.5-17.5); Lymphocytes # (auto) 1.2 10 ^3/uL (0.4-5.4); Lymphocytes % (auto) 7.6 % (10.0-50.0); Mean Corpuscular Hemoglobin 31.1 pg (28.0-32.0); Mean Corpuscular Volume 100.5 fL (80.0-100.0); Monocytes # (auto) 1.4 10 ^3/uL (0-1.3); Monocytes % (auto) 8.6 % (0.0-12.0); Neutrophils # (auto) 12.7 10 ^3/uL (1.6-8.6); Neutrophils % (auto) 78.3 % (37.0-80.0); Platelet Count (auto) 252 10^3/uL (140-450); Red Blood Cells 3.11 10^6/uL (4.5-5.90); Red Cell Distribution Width 18.1 % (11.8-14.3); White Blood Cell 16.3 10^3/uL (4.4-10.8)
[2023-09-27 04:18] LABS: Alanine Aminotransferase 11 U/L (7-40); Albumin 3.1 g/dL (3.2-4.8); Alkaline Phosphatase 94 U/L (46-116); Anion Gap 10 (5-15); Aspartate Aminotransferase 12 U/L (13-40); BUN/Creatinine Ratio 36.1 (10.0-20.0); Bilirubin, Total 0.4 mg/dL (0.2-1.0); Blood Urea Nitrogen 30 mg/dL (9-23); Calcium 8.5 mg/dL (8.7-10.4); Carbon Dioxide 20 mmol/L (20-30); Chloride 119 mmol/L (98-107); Potassium 3.4 mmol/L (3.5-5.1); Sodium 149 mmol/L (136-145); Total Protein 6.5 g/dL (5.7-8.2)
[2023-09-27 04:25] LABS: Glucose 129 mg/dL (74-106)
[2023-09-27] MEDS: LABETALOL HCL 20 MG/4 ML VL IV PRN (12:01)
[2023-09-27] MEDS: FLUCONAZOLE 200MG/100ML 100 ML IV ONE (16:10)
[2023-09-27] MEDS: POTASSIUM EFFERVESENT TAB 25 MEQ GT ONE (16:11)
[2023-09-27] MEDS: FREE WATER GT SCH (16:12)
[2023-09-27] MEDS: FUROSEMIDE 20 MG/2 ML VIAL IV ONE (16:12)
[2023-09-28] VITALS (44 sets, daily range): BP systolic 141–190; BP diastolic 71–97; PULSE 75–106; RESP 17–28; TEMP 98.8–100.4; O2SAT 93–98
[2023-09-28 05:47] LABS: Basophils # (auto) 0.2 10 ^3/uL (0-0.2); Eosinophils % (auto) 2.4 % (0.0-7.0); Hematocrit 31.2 % (41.0-53.0); Hemoglobin 9.7 g/dL (13.5-17.5); Lymphocytes # (auto) 1.3 10 ^3/uL (0.4-5.4); Monocytes # (auto) 1.2 10 ^3/uL (0-1.3); Neutrophils # (auto) 11.5 10 ^3/uL (1.6-8.6); Neutrophils % (auto) 79.2 % (37.0-80.0); White Blood Cell 14.5 10^3/uL (4.4-10.8)
[2023-09-28 05:50] LABS: Basophils % (auto) 1.3 % (0.0-2.0); Eosinophils # (auto) 0.3 10 ^3/uL (0-0.8); Lymphocytes % (auto) 8.7 % (10.0-50.0); Mean Corpuscular Hemoglobin 30.8 pg (28.0-32.0); Mean Corpuscular Hgb Conc. 31.2 g/dL (32.0-36.0); Mean Corpuscular Volume 98.6 fL (80.0-100.0); Monocytes % (auto) 8.4 % (0.0-12.0); Nucleated Red Blood Cells % 0.3 %; Platelet Count (auto) 234 10^3/uL (140-450); Red Blood Cells 3.16 10^6/uL (4.5-5.90); Red Cell Distribution Width 18.1 % (11.8-14.3)
[2023-09-28 05:59] LABS: Anion Gap 10 (5-15); Carbon Dioxide 20 mmol/L (20-30); Chloride 117 mmol/L (98-107); Potassium 3.8 mmol/L (3.5-5.1); Sodium 147 mmol/L (136-145)
[2023-09-28 06:01] LABS: Calcium 8.5 mg/dL (8.7-10.4)
[2023-09-28 06:05] LABS: BUN/Creatinine Ratio 34.1 (10.0-20.0); Blood Urea Nitrogen 28 mg/dL (9-23); Glucose 171 mg/dL (74-106)
[2023-09-28] MEDS: FUROSEMIDE 20 MG/2 ML VIAL IV SCH (07:58)
[2023-09-28] MEDS: levoFLOXacin 500MG 100 ML IV SCH (07:58)
[2023-09-28] MEDS: FLUCONAZOLE 200MG/100ML 100 ML IV SCH (07:58)
[2023-09-28] MEDS: LABETALOL HCL 20 MG/4 ML VL IV PRN (10:41)
[2023-09-28] MEDS: cloNIDine HCL 0.1 MG TAB PO ONE (14:35)
[2023-09-28] MEDS: METOPROLOL TARTRATE 50 MG TAB PO SCH (17:10)
[2023-09-28] MEDS: Nepro With Carb Steady 1 Liter Bottle GT SCH (19:46)
[2023-09-28] MEDS: cloNIDine HCL 0.1 MG TAB PO SCH (22:50)
[2023-09-29] VITALS (32 sets, daily range): BP systolic 127–158; BP diastolic 57–81; PULSE 75–99; RESP 16–30; TEMP 98.4–100.4; O2SAT 93–97
[2023-09-29 05:15] LABS: Basophils # (auto) 0.2 10 ^3/uL (0-0.2); Eosinophils # (auto) 0.4 10 ^3/uL (0-0.8); Eosinophils % (auto) 3.3 % (0.0-7.0); Hematocrit 30.1 % (41.0-53.0); Hemoglobin 9.6 g/dL (13.5-17.5); Lymphocytes # (auto) 1.2 10 ^3/uL (0.4-5.4); Lymphocytes % (auto) 11.2 % (10.0-50.0); Mean Corpuscular Hemoglobin 31.1 pg (28.0-32.0); Mean Corpuscular Hgb Conc. 31.9 g/dL (32.0-36.0); Mean Corpuscular Volume 97.7 fL (80.0-100.0); Monocytes # (auto) 0.9 10 ^3/uL (0-1.3); Monocytes % (auto) 7.9 % (0.0-12.0); Neutrophils # (auto) 8.4 10 ^3/uL (1.6-8.6); Neutrophils % (auto) 75.6 % (37.0-80.0); Platelet Count (auto) 229 10^3/uL (140-450); Red Blood Cells 3.08 10^6/uL (4.5-5.90); Red Cell Distribution Width 17.5 % (11.8-14.3); White Blood Cell 11.1 10^3/uL (4.4-10.8)
[2023-09-29 05:26] LABS: Chloride 116 mmol/L (98-107); Potassium 3.9 mmol/L (3.5-5.1); Sodium 146 mmol/L (136-145)
[2023-09-29 05:27] LABS: Anion Gap 9 (5-15); Carbon Dioxide 21 mmol/L (20-30)
[2023-09-29 05:28] LABS: Calcium 8.5 mg/dL (8.7-10.4)
[2023-09-29 05:32] LABS: BUN/Creatinine Ratio 35.1 (10.0-20.0); Blood Urea Nitrogen 27 mg/dL (9-23); Glucose 141 mg/dL (74-106)
[2023-09-29] MEDS: FUROSEMIDE 20 MG/2 ML VIAL IV ONE (15:19)
[2023-09-29] MEDS: FREE WATER GT SCH (18:14)
[2023-09-30] VITALS (33 sets, daily range): BP systolic 116–170; BP diastolic 56–81; PULSE 72–100; RESP 18–79; TEMP 98.1–99.7; O2SAT 16–97
[2023-09-30 05:18] LABS: Basophils # (auto) 0.3 10 ^3/uL (0-0.2); Basophils % (auto) 2.8 % (0.0-2.0); Eosinophils # (auto) 0.4 10 ^3/uL (0-0.8); Eosinophils % (auto) 3.6 % (0.0-7.0); Hematocrit 30.6 % (41.0-53.0); Hemoglobin 9.9 g/dL (13.5-17.5); Lymphocytes # (auto) 1.5 10 ^3/uL (0.4-5.4); Lymphocytes % (auto) 13.7 % (10.0-50.0); Mean Corpuscular Hgb Conc. 32.4 g/dL (32.0-36.0); Mean Corpuscular Volume 98.9 fL (80.0-100.0); Monocytes # (auto) 0.8 10 ^3/uL (0-1.3); Monocytes % (auto) 7.4 % (0.0-12.0); Neutrophils # (auto) 7.8 10 ^3/uL (1.6-8.6); Neutrophils % (auto) 72.5 % (37.0-80.0); Platelet Count (auto) 205 10^3/uL (140-450); Red Blood Cells 3.09 10^6/uL (4.5-5.90); Red Cell Distribution Width 17.5 % (11.8-14.3); White Blood Cell 10.7 10^3/uL (4.4-10.8)
[2023-09-30 05:25] LABS: Chloride 116 mmol/L (98-107); Potassium 3.5 mmol/L (3.5-5.1); Sodium 147 mmol/L (136-145)
[2023-09-30 05:26] LABS: Anion Gap 9 (5-15); Calcium 8.5 mg/dL (8.7-10.4); Carbon Dioxide 22 mmol/L (20-30)
[2023-09-30 05:31] LABS: BUN/Creatinine Ratio 37.7 (10.0-20.0); Blood Urea Nitrogen 26 mg/dL (9-23); Glucose 142 mg/dL (74-106)
[2023-10-01] VITALS (32 sets, daily range): BP systolic 145–179; BP diastolic 65–95; PULSE 73–107; RESP 16–29; TEMP 98.3–99.9; O2SAT 73–99
[2023-10-01 08:01] LABS: Basophils # (auto) 0.4 10 ^3/uL (0-0.2); Basophils % (auto) 3.1 % (0.0-2.0); Eosinophils # (auto) 0.2 10 ^3/uL (0-0.8); Eosinophils % (auto) 1.8 % (0.0-7.0); Hematocrit 32.6 % (41.0-53.0); Hemoglobin 10.2 g/dL (13.5-17.5); Lymphocytes # (auto) 1.4 10 ^3/uL (0.4-5.4); Lymphocytes % (auto) 11.7 % (10.0-50.0); Mean Corpuscular Hemoglobin 30.7 pg (28.0-32.0); Mean Corpuscular Hgb Conc. 31.4 g/dL (32.0-36.0); Mean Corpuscular Volume 97.9 fL (80.0-100.0); Monocytes # (auto) 0.9 10 ^3/uL (0-1.3); Monocytes % (auto) 7.6 % (0.0-12.0); Neutrophils # (auto) 9.1 10 ^3/uL (1.6-8.6); Neutrophils % (auto) 75.8 % (37.0-80.0); Nucleated Red Blood Cells % 0.1 %; Platelet Count (auto) 218 10^3/uL (140-450); Red Blood Cells 3.33 10^6/uL (4.5-5.90); Red Cell Distribution Width 17.2 % (11.8-14.3)
[2023-10-01 08:11] LABS: Anion Gap 7 (5-15); Carbon Dioxide 24 mmol/L (20-30); Chloride 115 mmol/L (98-107); Potassium 3.7 mmol/L (3.5-5.1); Sodium 146 mmol/L (136-145)
[2023-10-01 08:12] LABS: Calcium 8.8 mg/dL (8.7-10.4)
[2023-10-01 08:17] LABS: BUN/Creatinine Ratio 37.8 (10.0-20.0); Blood Urea Nitrogen 28 mg/dL (9-23); Glucose 161 mg/dL (74-106)
[2023-10-01 08:18] LABS: Magnesium 1.6 mg/dL (1.6-2.6)
[2023-10-02] VITALS (35 sets, daily range): BP systolic 121–149; BP diastolic 53–80; PULSE 70–103; RESP 14–26; TEMP 98.7–99.2; O2SAT 92–100
[2023-10-02 05:29] LABS: Basophils # (auto) 0.2 10 ^3/uL (0-0.2); Basophils % (auto) 1.4 % (0.0-2.0); Eosinophils # (auto) 0.2 10 ^3/uL (0-0.8); Eosinophils % (auto) 1.3 % (0.0-7.0); Hematocrit 32.8 % (41.0-53.0); Hemoglobin 10.4 g/dL (13.5-17.5); Lymphocytes # (auto) 2.1 10 ^3/uL (0.4-5.4); Lymphocytes % (auto) 15.8 % (10.0-50.0); Mean Corpuscular Hemoglobin 30.8 pg (28.0-32.0); Mean Corpuscular Hgb Conc. 31.8 g/dL (32.0-36.0); Mean Corpuscular Volume 96.9 fL (80.0-100.0); Monocytes % (auto) 7.4 % (0.0-12.0); Neutrophils % (auto) 74.1 % (37.0-80.0); Platelet Count (auto) 215 10^3/uL (140-450); Red Blood Cells 3.39 10^6/uL (4.5-5.90); Red Cell Distribution Width 17.2 % (11.8-14.3); White Blood Cell 13.6 10^3/uL (4.4-10.8)
[2023-10-02 05:43] LABS: Chloride 114 mmol/L (98-107); Potassium 3.4 mmol/L (3.5-5.1); Sodium 147 mmol/L (136-145)
[2023-10-02 05:44] LABS: Anion Gap 10 (5-15); Carbon Dioxide 23 mmol/L (20-30)
[2023-10-02 05:45] LABS: Calcium 8.9 mg/dL (8.7-10.4)
[2023-10-02 05:49] LABS: BUN/Creatinine Ratio 37.5 (10.0-20.0); Blood Urea Nitrogen 30 mg/dL (9-23); Glucose 170 mg/dL (74-106)
[2023-10-02] MEDS: POTASSIUM CHL 20MEQ/100ML 100 ML IV ONE (12:33)
[2023-10-03] VITALS (30 sets, daily range): BP systolic 109–148; BP diastolic 44–84; PULSE 64–93; RESP 16–25; TEMP 98.9–99.3; O2SAT 96–100
[2023-10-03 05:30] LABS: Basophils # (auto) 0.2 10 ^3/uL (0-0.2); Basophils % (auto) 1.5 % (0.0-2.0); Eosinophils # (auto) 0.2 10 ^3/uL (0-0.8); Eosinophils % (auto) 1.7 % (0.0-7.0); Hematocrit 32.7 % (41.0-53.0); Hemoglobin 10.6 g/dL (13.5-17.5); Lymphocytes # (auto) 2.4 10 ^3/uL (0.4-5.4); Lymphocytes % (auto) 18.7 % (10.0-50.0); Mean Corpuscular Hemoglobin 31.2 pg (28.0-32.0); Mean Corpuscular Hgb Conc. 32.4 g/dL (32.0-36.0); Mean Corpuscular Volume 96.2 fL (80.0-100.0); Monocytes # (auto) 0.9 10 ^3/uL (0-1.3); Monocytes % (auto) 7.1 % (0.0-12.0); Platelet Count (auto) 210 10^3/uL (140-450); Red Cell Distribution Width 17.2 % (11.8-14.3); White Blood Cell 12.7 10^3/uL (4.4-10.8)
[2023-10-03 05:48] LABS: Alanine Aminotransferase 26 U/L (7-40); Albumin 3.5 g/dL (3.2-4.8); Alkaline Phosphatase 134 U/L (46-116); Anion Gap 8 (5-15); Aspartate Aminotransferase 30 U/L (13-40); BUN/Creatinine Ratio 41.3 (10.0-20.0); Bilirubin, Total 0.2 mg/dL (0.2-1.0); Blood Urea Nitrogen 31 mg/dL (9-23); Carbon Dioxide 24 mmol/L (20-30); Chloride 115 mmol/L (98-107); Glucose 126 mg/dL (74-106); Potassium 3.5 mmol/L (3.5-5.1); Sodium 147 mmol/L (136-145); Total Protein 6.8 g/dL (5.7-8.2)
[2023-10-04] VITALS (30 sets, daily range): BP systolic 101–164; BP diastolic 44–85; PULSE 65–97; RESP 16–26; TEMP 98.2–99; O2SAT 97–100
[2023-10-04 05:18] LABS: Hematocrit 32.2 % (41.0-53.0); Hemoglobin 10.4 g/dL (13.5-17.5); Mean Corpuscular Hemoglobin 31.6 pg (28.0-32.0); Mean Corpuscular Hgb Conc. 32.4 g/dL (32.0-36.0); Mean Corpuscular Volume 97.6 fL (80.0-100.0); Platelet Count (auto) 203 10^3/uL (140-450); Red Cell Distribution Width 16.9 % (11.8-14.3); White Blood Cell 10.7 10^3/uL (4.4-10.8)
[2023-10-04 05:33] LABS: Basophils % (manual) 0 (0.0-2.0); Blast Cells 0; Metamyelocytes % 0; Myelocytes % 0; Promyelocytes % 0; Reactive Lymphocytes 0
[2023-10-04 05:36] LABS: Alanine Aminotransferase 25 U/L (7-40); Albumin 3.3 g/dL (3.2-4.8); Alkaline Phosphatase 125 U/L (46-116); Anion Gap 9 (5-15); Aspartate Aminotransferase 26 U/L (13-40); BUN/Creatinine Ratio 36.5 (10.0-20.0); Bilirubin, Total 0.2 mg/dL (0.2-1.0); Blood Urea Nitrogen 27 mg/dL (9-23); Calcium 8.7 mg/dL (8.7-10.4); Carbon Dioxide 24 mmol/L (20-30); Chloride 113 mmol/L (98-107); Glucose 153 mg/dL (74-106); Potassium 3.2 mmol/L (3.5-5.1); Sodium 146 mmol/L (136-145); Total Protein 6.8 g/dL (5.7-8.2)
[2023-10-04 07:51] LABS: Band Neutrophils % (manual) 3; Eosinophils % (manual) 2 (0-7); Lymphocytes % (manual) 17 (10.0-50.0); Monocytes % (manual) 7 (0-12)
[2023-10-04 07:53] LABS: Anisocytosis Slight; Platelet Estimate Adequate
[2023-10-04] MEDS ORDERED: DEXTROSE (50%) 50ML SYRG IV PRN (13:15)
[2023-10-04] MEDS: POTASSIUM EFFERVESENT TAB 25 MEQ GT ONE (14:37)
[2023-10-04] MEDS: ACCU-CHEK COMFORT CURVE STRIP VI SCH (17:47)
[2023-10-04] MEDS: InsuLIN REG 1unit/0.01ml Soln (100units/ml) SC SCH (17:48)
[2023-10-04] MEDS: METOPROLOL TARTRATE 25 MG TAB PO SCH (22:00)
[2023-10-05] VITALS (33 sets, daily range): BP systolic 105–163; BP diastolic 52–81; PULSE 68–107; RESP 14–27; TEMP 97.9–100; O2SAT 94–100
[2023-10-05 05:31] LABS: Chloride 113 mmol/L (98-107); Potassium 3.5 mmol/L (3.5-5.1); Sodium 145 mmol/L (136-145)
[2023-10-05 05:32] LABS: Anion Gap 8 (5-15); Calcium 8.8 mg/dL (8.7-10.4); Carbon Dioxide 24 mmol/L (20-30)
[2023-10-05 05:37] LABS: BUN/Creatinine Ratio 31.9 (10.0-20.0); Blood Urea Nitrogen 22 mg/dL (9-23); Glucose 151 mg/dL (74-106)
[2023-10-05] MEDS: FLUCONAZOLE 100 MG TAB PO SCH (10:00)
[2023-10-05] MEDS: levoFLOXacin 500 MG TAB PO SCH (10:00)
[2023-10-05] MEDS: PANTOPRAZOLE 40 MG TAB PO SCH (16:53)
[2023-10-06] VITALS (21 sets, daily range): BP systolic 92–144; BP diastolic 48–74; PULSE 65–88; RESP 14–23; TEMP 97.4–98.6; O2SAT 93–100
== END 2023-10-06 11:49 | DRG 4 ==
LOC: ER 19:02 → EDBD 19:02 → TELE 23:18 → ICU WEST 08-19 05:15 → DOU IN ICU 08-23 16:06 → ICU WEST 08-25 23:11 → DOU IN ICU 09-27 17:02
PROVIDERS: ADMIT Internal Medicine; ATTEND Internal Medicine
PROC: 5A12012 Performance of Cardiac Output, Single, Manual (ICD-10-PCS; 2023-08-19)
PROC: 02HV33Z Insertion of Infusion Device into Superior Vena Cava, Percutaneous Approach (ICD-10-PCS; 2023-08-19)
PROC: 0W9G0ZZ Drainage of Peritoneal Cavity, Open Approach (ICD-10-PCS; 2023-08-19)
PROC: 0BH17EZ Insertion of Endotracheal Airway into Trachea, Via Natural or Artificial Opening (ICD-10-PCS; 2023-08-19)
PROC: 5A1945Z Respiratory Ventilation, 24-96 Consecutive Hours (ICD-10-PCS; 2023-08-19)
PROC: 5A1955Z Respiratory Ventilation, Greater than 96 Consecutive Hours (ICD-10-PCS; 2023-08-25)
PROC: 0W9G00Z Drainage of Peritoneal Cavity with Drainage Device, Open Approach (ICD-10-PCS; 2023-08-25)
PROC: 0BH17EZ Insertion of Endotracheal Airway into Trachea, Via Natural or Artificial Opening (ICD-10-PCS; 2023-08-25)
PROC: 30233N1 Transfusion of Nonautologous Red Blood Cells into Peripheral Vein, Percutaneous Approach (ICD-10-PCS; 2023-08-25)
PROC: 0DQ90ZZ Repair Duodenum, Open Approach (ICD-10-PCS; principal; 2023-08-25 20:38)
PROC: 02H633Z Insertion of Infusion Device into Right Atrium, Percutaneous Approach (ICD-10-PCS; 2023-08-27)
PROC: B548ZZA Ultrasonography of Superior Vena Cava, Guidance (ICD-10-PCS; 2023-08-27)
PROC: 0BCB8ZZ Extirpation of Matter from Left Lower Lobe Bronchus, Via Natural or Artificial Opening Endoscopic (ICD-10-PCS; 2023-08-28)
PROC: 0BC68ZZ Extirpation of Matter from Right Lower Lobe Bronchus, Via Natural or Artificial Opening Endoscopic (ICD-10-PCS; 2023-08-28)
PROC: 02HV33Z Insertion of Infusion Device into Superior Vena Cava, Percutaneous Approach (ICD-10-PCS; 2023-09-01)
PROC: 5A1D70Z Performance of Urinary Filtration, Intermittent, Less than 6 Hours Per Day (ICD-10-PCS; 2023-09-02)
PROC: 5A1D70Z Performance of Urinary Filtration, Intermittent, Less than 6 Hours Per Day (ICD-10-PCS; 2023-09-04)
PROC: 5A1D70Z Performance of Urinary Filtration, Intermittent, Less than 6 Hours Per Day (ICD-10-PCS; 2023-09-07)
PROC: 5A1D70Z Performance of Urinary Filtration, Intermittent, Less than 6 Hours Per Day (ICD-10-PCS; 2023-09-08)
PROC: 02HV33Z Insertion of Infusion Device into Superior Vena Cava, Percutaneous Approach (ICD-10-PCS; 2023-09-09)
PROC: 5A1D70Z Performance of Urinary Filtration, Intermittent, Less than 6 Hours Per Day (ICD-10-PCS; 2023-09-09)
PROC: 5A1D70Z Performance of Urinary Filtration, Intermittent, Less than 6 Hours Per Day (ICD-10-PCS; 2023-09-10)
PROC: 5A1D70Z Performance of Urinary Filtration, Intermittent, Less than 6 Hours Per Day (ICD-10-PCS; 2023-09-12)
PROC: 5A1D70Z Performance of Urinary Filtration, Intermittent, Less than 6 Hours Per Day (ICD-10-PCS; 2023-09-14)
PROC: 5A1D70Z Performance of Urinary Filtration, Intermittent, Less than 6 Hours Per Day (ICD-10-PCS; 2023-09-15)
PROC: 0B110F4 Bypass Trachea to Cutaneous with Tracheostomy Device, Open Approach (ICD-10-PCS; 2023-09-16)
PROC: 5A1D70Z Performance of Urinary Filtration, Intermittent, Less than 6 Hours Per Day (ICD-10-PCS; 2023-09-16)
PROC: 5A1D70Z Performance of Urinary Filtration, Intermittent, Less than 6 Hours Per Day (ICD-10-PCS; 2023-09-17)
PROC: 5A1D70Z Performance of Urinary Filtration, Intermittent, Less than 6 Hours Per Day (ICD-10-PCS; 2023-09-19)
PROC: 5A1935Z Respiratory Ventilation, Less than 24 Consecutive Hours (ICD-10-PCS; 2023-09-20)
PROC: 5A1935Z Respiratory Ventilation, Less than 24 Consecutive Hours (ICD-10-PCS; 2023-09-21)
PROC: 5A1935Z Respiratory Ventilation, Less than 24 Consecutive Hours (ICD-10-PCS; 2023-09-22)
PROC: 02HV33Z Insertion of Infusion Device into Superior Vena Cava, Percutaneous Approach (ICD-10-PCS; 2023-09-26)
PROC: B548ZZA Ultrasonography of Superior Vena Cava, Guidance (ICD-10-PCS; 2023-09-26)
DX: A41.51 Sepsis due to Escherichia coli [E. coli] (principal); I46.9 Cardiac arrest, cause unspecified; J69.0 Pneumonitis due to inhalation of food and vomit; K65.1 Peritoneal abscess; G92.8 Other toxic encephalopathy; K26.6 Chronic or unspecified duodenal ulcer with both hemorrhage and perforation; N17.0 Acute kidney failure with tubular necrosis; R57.1 Hypovolemic shock; R65.21 Severe sepsis with septic shock; E11.10 Type 2 diabetes mellitus with ketoacidosis without coma; J96.01 Acute respiratory failure with hypoxia; D68.9 Coagulation defect, unspecified; R18.8 Other ascites; E78.5 Hyperlipidemia, unspecified; E86.1 Hypovolemia; E87.0 Hyperosmolality and hypernatremia; K44.9 Diaphragmatic hernia without obstruction or gangrene; D50.0 Iron deficiency anemia secondary to blood loss (chronic); E11.22 Type 2 diabetes mellitus with diabetic chronic kidney disease; F17.200 Nicotine dependence, unspecified, uncomplicated; K52.9 Noninfective gastroenteritis and colitis, unspecified; N18.9 Chronic kidney disease, unspecified; E44.0 Moderate protein-calorie malnutrition; I13.0 Hypertensive heart and chronic kidney disease with heart failure and stage 1 through stage 4 chronic kidney disease, or unspecified chronic kidney disease; E66.9 Obesity, unspecified; I50.41 Acute combined systolic (congestive) and diastolic (congestive) heart failure; K66.0 Peritoneal adhesions (postprocedural) (postinfection); T36.8X5A Adverse effect of other systemic antibiotics, initial encounter; R57.8 Other shock; K66.8 Other specified disorders of peritoneum; R74.01 Elevation of levels of liver transaminase levels; I82.613 Acute embolism and thrombosis of superficial veins of upper extremity, bilateral; Z99.11 Dependence on respirator [ventilator] status; Z68.20 Body mass index [BMI] 20.0-20.9, adult; Z79.4 Long term (current) use of insulin; Z79.899 Other long term (current) drug therapy; Y92.89 Other specified places as the place of occurrence of the external cause
CPT/HCPCS: 31500; 36415; 36600; 70450; 70490; 71045; 71250; 71275; 74176; 74246; 74248; 76775; 80048; 80053; 80202; 80307; 81001; 82010; 82140; 82150; 82270; 82570; 82728; 82805; 82962; 83036; 83540; 83550; 83605; 83690; 83735; 83930; 83935; 84100; 84295; 84300; 84443; 84478; 84484; 85007; 85014; 85018; 85025; 85027; 85610; 85730; 86705; 86706; 86850; 86900; 86901; 86920; 87040; 87070; 87075; 87077; 87081; 87086; 87088; 87186; 87205; 87340; 90935; 92610; 92950; 93005; 93306; 93970; 94002; 94003; 94640; 96361; 96374; 96375; 96376; 97110; 97116; 97163; 97530; 99291; A4605; C9113; G0378; J0131; J0692; J1100; J1450; J1642; J1756; J1815; J1956; J2001; J2185; J2248; J2250; J2405; J2470; J2704; J3480; J3490; J7060; J7131; P9047

== ENCOUNTER 2024-01-07 17:32 | Inpatient (IN) | payer MEDICAID ==
[~2024-01-07] VITALS: Ht 170.2 cm; Wt 61.0 kg
[~2024-01-07 17:32] MED LIST: ATOR20TA50 PO; ERTU15TA PO; FAMO-12 PO; GLIP-110 PO; LISI-275 PO; METF-370 PO; PANT40TA2 PO
--- NOTE | 2024-01-07 18:08 | ED.PDOC ---
GI ASSESSMENT HPI Comments 63 y.o male with PMH of OK, HTN, hyperlipidemia, CKF, and PUD, presents to the ED for a chief complaint of epigastric pain associated with nausea, vomiting, diarrhea and chills that started one day ago. Patient describes pain as sharp, constant, non radiating, and rating a 8/10 on the pain scale. Patient reports a recent diagnose of gallbladder infection 2 weeks ago at a hospital [place] [address]. Patient denies any bloody stool, hematemesis. Upon ED arrival, patient had a temperature of 99.2 F. Chief Complaint: Abdominal Pain Time Seen by MD: 18:00 Reviewed Notes: Nurses Notes, Medications, Allergies (No allergies to medications) Allergies: Coded Allergies: NO KNOWN ALLERGIES (Unverified , 08/18/23) Home Meds Reported Medications Glipizide (Glipizide Er) 5 Mg Tab, 10 MG PO DAILY for 30 Days, MG 08/19/23 Atorvastatin Calcium (ATORVASTATIN CALCIUM) 20 Mg Tab, 20 MG PO DAILY, TAB 08/19/23 Ertugliflozin l-Pyroglutamic A (Steglatro) 15 Mg Tab, 15 MG PO DAILY, TAB 08/19/23 Metformin Hydrochloride (Metformin Hcl) 500 Mg Tab, 1000 MG PO BIDWM for 30 Days, MG 08/19/23 Pantoprazole Sodium Sesquihydr (Protonix) 40 Mg Tab, 40 MG PO DAILY, #30 TAB 08/19/23 Lisinopril (Lisinopril) 5 Mg Tab, 5 MG PO DAILY for 30 Days, MG 08/19/23 Famotidine (Famotidine) 20 Mg Tab, 20 MG PO BID for 30 Days, MG 08/19/23 Information Source: Patient Mode of Arrival: Wheelchair Timing: Days (1) Duration: Since onset Quality: Sharp Vomitus: Bilious Stool: Loose Severity: Moderate Recent: None Recent Hx of: Other Pain Location: Epigastric Modifying Factors: Nothing Associated sign and symptoms: Nausea, Vomiting, Diarrhea, Abdominal Pain Past Medical History PAST MEDICAL HISTORY: CKF, High Lipids, HTN, OK, PUD Surgical History: Hernia Repair Surgical History (Other): bowel obstruction with bladder sx Family History Family History: Unknown Social History Smoker: Quit Greater Than 1 Year Alcohol: Other Drugs: Denies Drug Use Lives In: Home Constitutional: reports: chills; denies: diaphoresis, fatigue, fever, malaise, sweats, weakness, others EENTM: denies: blurred vision, double vision, ear bleeding, ear discharge, ear drainage, ear pain, ear ringing, eye pain, eye redness, hearing loss, mouth pain, mouth swelling, nasal discharge, nose bleeding, nose congestion, nose pain, photophobia, tearing, throat pain, throat swelling, voice changes, others Respiratory: denies: cough, hemoptysis, orthopnea, SOB at rest, shortness of breath, SOB with excertion, stridor, wheezing, others Cardiovascular: denies: chest pain, dizzy spells, diaphoresis, Dyspnea on exertion, edema, irregular heart beat, left arm pain, lightheadedness, palpitations, PND, syncope, others Gastrointestinal: reports: abdominal pain, diarrhea, nausea, vomiting; denies: abdomen distended, blood streaked bowels, constipated, dysphagia, difficulty swallowing, hematemesis, melena, poor appetite, poor fluid intake, rectal bleeding, rectal pain, others Genitourinary: denies: burning, dysuria, flank pain, frequency, hematuria, incontinence, penile discharge, penile sore, pain, testicle pain, testicle swelling, urgency, others Neurological: denies: dizziness, fainting, headache, left sided numbness, left sided weakness, numbness, paresthesia, pre-existing deficit, right sided numbness, right sided weakness, seizure, speech problems, tingling, tremors, weakness, others Musculoskeletal: denies: back pain, gout, joint pain, joint swelling, muscle pain, muscle stiffness, neck pain, others Integumetry: denies: bruises, change in color, change in hair/nails, dryness, laceration, lesions, lumps, rash, wounds, others Allergic/Immunocompromised: denies: Difficulty Healing, Frequent Infections, Hives, Itching, others Hematologic/Lymphatic: denies: anemia, blood clots, easy bleeding, easy bruising, swollen glands, others Endocrine: denies: excessive hunger, excessive sweating, excessive thirst, excessive urination, flushing, intolerance to cold, intolerance to heat, unexplained weight gain, unexplained weight loss, others Psychiatric: denies: anxiety, bipolar disorder, depression, hopeless, panic disorder, schizophrenia, sleepless, suicidal, others All Other Systems: Reviewed and Negative Physical Exam General Appearance: Moderate Distress HEENT: Normal ENT Inspection, Pharynx Normal, TMs Normal Neck: Full Range of Motion, Non-Tender, Normal, Normal Inspection Respiratory: Chest Non-Tender, Lungs Clear, No Accessory Muscle Use, No Respiratory Distress, Normal Breath Sounds Cardiovascular: No Edema, No JVD, No Murmur, No Gallop, Normal Peripheral Pulses, Regular Rate/Rhythm Breast Exam: Deferred Gastrointestinal: Epigastric, No Organomegaly, No Pulsatile Mass, Normal Bowel Sounds, Soft, Tenderness Genitalia: Deferred Pelvic: Deferred Rectal: Deferred Extremities: No calf tenderness, Normal capillary refill, Normal inspection, Normal range of motion, Non-tender, No pedal edema Musculoskeletal : Apperance: Normal Neurologic: Alert, air liaison and special staff II-XII nml as Tested, No Motor Deficits, Normal Affect, Normal Mood, No Sensory Deficits Cerebellar Function: Normal Reflexes: Normal Skin: Dry, Normal Color, Warm Lymphatic: No Adenopathy EKG EKG : Pulse Rate (adult): 107 Cardiac Rhythm: ST Was a procedure done? Was a procedure done?: No GI differential Dx Differential Diagnosis: Bowel Obstruction, Cholangitis, Cholecystitis, Gastroenteritis, Inflammatory BD, Dehydration, Electrolyte Imbalance, Bacterial, Viral X-Ray, Labs, Meds, VS Vital Signs Date Time Temp Pulse Resp B/P (MAP) Pulse Ox O2 Delivery O2 Flow Rate FiO2 01/07/24 19:00 102 18 136/88 01/07/24 18:31 100 18 96 Room Air* 0 21 01/07/24 18:29 98.1 100 18 135/85 (102) 94 98.1 01/07/24 18:29 100 18 135/85 01/07/24 18:14 107 01/07/24 17:44 99.2 70 20 127/78 (94) 95 Lab Test 01/07/24 18:17 01/07/24 17:47 Range/Units White Blood Count 17.4 H 4.4-10.8 10^3/uL Red Blood Count 3.74 L 4.5-5.90 10^6/uL Hemoglobin 11.5 L 13.5-17.5 g/dL Hematocrit 34.7 L 41.0-53.0 % Mean Corpuscular Volume 92.7 80.0-100.0 fL Mean Corpuscular Hemoglobin 30.9 28.0-32.0 pg Mean Corpuscular Hemoglobin Concent 33.3 32.0-36.0 g/dL Red Cell Distribution Width 16.0 H 11.8-14.3 % Platelet Count 537 H 140-450 10^3/uL Mean Platelet Volume 7.4 6.9-10.8 fL Neutrophils (%) (Auto) 92.8 H 37.0-80.0 % Lymphocytes (%) (Auto) 2.4 L 10.0-50.0 % Monocytes (%) (Auto) 4.3 0.0-12.0 % Eosinophils (%) (Auto) 0.0 0.0-7.0 % Basophils (%) (Auto) 0.5 0.0-2.0 % Neutrophils # (Auto) 16.1 H 1.6-8.6 10 ^3/uL Lymphocytes # (Auto) 0.4 0.4-5.4 10 ^3/uL Monocytes # (Auto) 0.7 0-1.3 10 ^3/uL Eosinophils # (Auto) 0 0-0.8 10 ^3/uL Basophils # (Auto) 0.1 0-0.2 10 ^3/uL Nucleated Red Blood Cells 0.0 % Sodium Level 141 136-145 mmol/L Potassium Level 3.8 3.5-5.1 mmol/L Chloride Level 100 98-107 mmol/L Carbon Dioxide Level 29 20-31 mmol/L Anion Gap 12 5-15 Blood Urea Nitrogen 27 H 9-23 mg/dL Creatinine 1.06 0.700-1.30 mg/dL Glomerular Filtration Rate Calc 79 >90 mL/min BUN/Creatinine Ratio 25.5 H 10.0-20.0 Serum Glucose 206 H 74-106 mg/dL Calcium Level 9.9 8.7-10.4 mg/dL Total Bilirubin 0.4 0.2-1.0 mg/dL Aspartate Amino Transferase (AST) 26 13-40 U/L Alanine Aminotransferase (ALT) 80 H 7-40 U/L Alkaline Phosphatase 125 H 46-116 U/L Total Protein 7.9 5.7-8.2 g/dL Albumin 4.6 3.2-4.8 g/dL Lipase 73 H 12-53 U/L POC Glucose 166 H 70-106 mg/dl Current Medications Medications (Trade) Dose Ordered Sig/Tabatha Route Start Time Stop Time Status Last Admin Ondansetron HCl (Zofran) 4 mg ONCE ONCE IV 01/07/24 18:00 01/07/24 18:01 DC 01/07/24 18:29 Morphine Sulfate 4 mg ONCE ONCE IV 01/07/24 18:00 01/07/24 18:01 DC 01/07/24 18:29 Ultrasound of the gallbladder shows: No sign of any abnormalities The CBC shows an elevated white blood cell count of 17.4 The rest of the CBC is within normal limits The chemistry panel shows hyperglycemia at 206 The rest of the chemistry panel is within normal limits except for a slightly elevated lipase at 73 There is a concern for possible pancreatitis The patient will be admitted and the recommendation is that the patient get a CT scan of the abdomen and pelvis. The patient was given morphine 4 mg IV push for the pain The patient was given Zofran 4 mg IV push for the nausea Images Reviewed?: Images reviewed and evaluated by me Time of 1ST Reevaluation: 18:08 Reevaluation 1ST: Unchanged Patient Education/Counseling: Diagnosis, Treatment, Prognosis Family Education/Counseling: No Family Present Departure 1 Departure Time of Disposition: 19:20 Impression: Primary Impression: Intractable abdominal pain Additional Impression: Elevated lipase Disposition: ADMITTED INPATIENT Admit to: Med Surg Condition: Fair Critical Care Note Critical Care Time?: No Stability Stability form required: Yes Unstable for transfer: ED Physician Assesment (Clinical assesment) I personally scribed for KYE MARTEL MD ([email or web address]) on 01/07/24 at 18:08. Electronically submitted by Meli Askew ([employer] I personally scribed for KYE MARTEL MD ([email or web address]) on 01/07/24 at 18:14. Electronically submitted by Meli Askew ([employer] KYE MARTEL MD Jan 07, 2024 18:08
[2024-01-07 18:29] VITALS: TEMP 98.1
[2024-01-07] MEDS: ONDANSETRON HCL 4 MG/2 ML VIAL IV ONE (18:29)
[2024-01-07] MEDS: MORPHINE SULFATE 4 MG/ML SYR/VIAL IV ONE (18:29)
[2024-01-07 18:31] VITALS: PULSE 100; RESP 18; O2SAT 96
[2024-01-07 18:38] LABS: Basophils # (auto) 0.1 10 ^3/uL (0-0.2); Basophils % (auto) 0.5 % (0.0-2.0); Eosinophils # (auto) 0 10 ^3/uL (0-0.8); Hematocrit 34.7 % (41.0-53.0); Hemoglobin 11.5 g/dL (13.5-17.5); Lymphocytes # (auto) 0.4 10 ^3/uL (0.4-5.4); Lymphocytes % (auto) 2.4 % (10.0-50.0); Mean Corpuscular Hemoglobin 30.9 pg (28.0-32.0); Mean Corpuscular Hgb Conc. 33.3 g/dL (32.0-36.0); Mean Corpuscular Volume 92.7 fL (80.0-100.0); Monocytes # (auto) 0.7 10 ^3/uL (0-1.3); Monocytes % (auto) 4.3 % (0.0-12.0); Neutrophils # (auto) 16.1 10 ^3/uL (1.6-8.6); Neutrophils % (auto) 92.8 % (37.0-80.0); Platelet Count (auto) 537 10^3/uL (140-450); Red Blood Cells 3.74 10^6/uL (4.5-5.90); White Blood Cell 17.4 10^3/uL (4.4-10.8)
--- NOTE | 2024-01-07 18:40 | DVH ---
INDICATION: Pain. TECHNIQUE: Multiple real-time sonographic images of the abdomen were obtained. COMPARISON: None FINDINGS: The liver is homogenous in echogenicity. The liver measures 13.21 cm. No intrahepatic bili andres ductal dilatation is noted. The gallbladder wall measures 0.23 cm and is unremarkable. No gallstones or sludge is seen. The co mmon duct measures 0.4 cm and is unremarkable. No pericholecystic fluid is noted. Negative ultrasound Cooper's The right kidney measures 10.36 cm. No hydronephrosis. The pancreas is normal IMPRESSION: 1. Normal exam of the abdomen.
[2024-01-07 18:46] LABS: Alanine Aminotransferase 80 U/L (7-40); Alkaline Phosphatase 125 U/L (46-116); Anion Gap 12 (5-15); Aspartate Aminotransferase 26 U/L (13-40); BUN/Creatinine Ratio 25.5 (10.0-20.0); Blood Urea Nitrogen 27 mg/dL (9-23); Calcium 9.9 mg/dL (8.7-10.4); Carbon Dioxide 29 mmol/L (20-31); Chloride 100 mmol/L (98-107); Glucose 206 mg/dL (74-106); Lipase 73 U/L (12-53); Potassium 3.8 mmol/L (3.5-5.1); Sodium 141 mmol/L (136-145)
[2024-01-07 18:47] LABS: Albumin 4.6 g/dL (3.2-4.8); Bilirubin, Total 0.4 mg/dL (0.2-1.0); Total Protein 7.9 g/dL (5.7-8.2)
[2024-01-07 19:35] VITALS: PULSE 105; RESP 18; O2SAT 96
[2024-01-07] MEDS ORDERED: ONDANSETRON HCL 4 MG/2 ML VIAL IV PRN (20:30)
[2024-01-07] MEDS ORDERED: HYDROcodone-ACET 5/325MG TAB PO PRN (20:30)
[2024-01-07] MEDS ORDERED: NITROGLYCERIN 0.4 MG SL TAB SL PRN (20:30)
[2024-01-07] MEDS ORDERED: MORPHINE SULFATE INJ 2 MG/ml SYRG IV PRN (20:30)
[2024-01-07] MEDS: SODIUM CHLORIDE 0.9% 1,000 ML IV SCH ×2 (21:30→22:12)
[2024-01-07] MEDS: SODIUM CHLOR 0.9% PF (SALINE LOCK) 10ML VIAL/SYR IV SCH (21:34)
--- NOTE | 2024-01-07 21:39 | DVHHPRES ---
History of Present Illness Resident Creating Document: IRAJ MCCOY RESIDENT History of Present Illness This is a 62 years old male with past medical history of hypertension, CAD, type 2 diabetes mellitus, PUD presented to the ED with a chief complaint of epigastric pain associated with nausea, vomiting, diarrhea for 2 days prior to this admission. According to the patient epigastric pain is sharp , nonradiating, 8/10 and associated with nausea and vomiting without any aggravating and relieving factors and his last bowel movement was today morning. The daughter mentioned the patient had a recent diagnosis of gallbladder infection and was treated in hospital with a heel 2 weeks ago . The patient den ies any chest pain, shortness of breath, dizziness, diaphoresis, dysuria or any blood in stool. Past Medical History Hypertension, CAD, type 2 diabetes mellitus, PUD Past Surgical History Exploratory laparotomy and hernia repair 2 times. Family History: None Smoke: No ALCOHOL: none Drugs: None Lives: with Family Review of Systems Constitutional: No: Fever, Chills, Sweats, Weakness, Malaise, Other Eyes: No: Pain, Vision change, Conjunctivae inflammation, Eyelid inflammation, Other, Redness ENT: No: Ear pain, Ear discharge, Nose pain, Nose discharge, Nose congestion, Mouth pain, Mouth swelling, Throat pain, Throat swelling, Other Respiratory: No: Cough, Dry, Shortness of breath, SOB with excertion, Wheezing, Hemoptysis, Pleuritic Pain, Sputum, Wheezing, Other Cardiovascular: No: Chest Pain, Palpitations, Orthopnea, Paroxysmal Noc. Dyspnea, Edema, Lt Headedness, Other Gastrointestinal: Nausea, Vomiting, Abdominal Pain, Diarrhea; No: Constipation, Melena, Hematochezia, Other Genitourinary: No Dysuria, No Frequency; Incontinence; No Hematuria, No Retention, No Other Musculoskeletal: No: other, neck pain, shoulder pain, arm pain, back pain, hand pain, leg pain, foot pain Skin: No: Rash, Lesions, Jaundice, Bruising, Other Neurological: No: Weakness, Numbness, Incoordination, Change in speech, Confusion, Seizures, Other Allergies: Coded Allergies: NO KNOWN ALLERGIES (Unverified , 08/18/23) Medications Current Medications Medications Dose Ordered Sig/Tabatha Route Start Time Stop Time Status Last Admin Dose Admin Sodium Chloride 10 ml Q8HR IV 01/07/24 22:00 01/07/24 21:34 10 ML Acetaminophen/ Hydrocodone Bitart 1 tab Q4HP PRN PO 01/07/24 20:30 Ondansetron HCl 4 mg Q4HP PRN IV 01/07/24 20:30 Morphine Sulfate 2 mg Q4HPRN PRN IV 01/07/24 20:30 Nitroglycerin 0.4 mg Q5MINP PRN SL 01/07/24 20:30 Morphine Sulfate 2 mg Q30M PRN IV 01/07/24 20:30 Sodium Chloride 1,000 ml @ 100 mls/hr Q10H IV 01/07/24 21:45 UNV Ceftriaxone Sodium 50 ml @ 100 mls/hr DAILY@09 IV 01/08/24 09:00 UNV Metronidazole 100 ml @ 100 mls/hr Q8HR IV 01/07/24 22:00 UNV Exam Vital Signs Vital Signs Date Time Temp Pulse Resp B/P (MAP) Pulse Ox O2 Delivery O2 Flow Rate FiO2 01/07/24 19:35 105 18 96 Room Air* 0 21 01/07/24 19:31 136/88 (104) 01/07/24 18:29 98.1 98.1 Exam Physical examination: General Appearance: Alert, Oriented X3, Cooperative, No acute distress HEENT: Atraumatic, PERRLA, EOMI, Mucous membrane moist/pink Respiratory: Clear to auscultation, Normal air movement Cardiovascular: Regular rate, Normal S1, Normal S2, No murmurs, no chest wall tenderness Abdominal: Sluggish bowel sounds, tenderness in the epigastric region, No hepatospenomegaly, No masses Extremities: No clubbing, No cyanosis, No edema, Normal pulses, No tenderness/swelling Skin: No rashes, No breakdown, No significant lesion Neuro: Normal gait, Normal speech, Strength at 5/5 X4 ext, Normal tone, Sensation intact. Psych/Mental Status: Mental status NL, Mood NL Labs/Xrays Labs Test 01/07/24 18:17 01/07/24 17:47 Range/Units White Blood Count 17.4 H 4.4-10.8 10^3/uL Red Blood Count 3.74 L 4.5-5.90 10^6/uL Hemoglobin 11.5 L 13.5-17.5 g/dL Hematocrit 34.7 L 41.0-53.0 % Mean Corpuscular Volume 92.7 80.0-100.0 fL Mean Corpuscular Hemoglobin 30.9 28.0-32.0 pg Mean Corpuscular Hemoglobin Concent 33.3 32.0-36.0 g/dL Red Cell Distribution Width 16.0 H 11.8-14.3 % Platelet Count 537 H 140-450 10^3/uL Mean Platelet Volume 7.4 6.9-10.8 fL Neutrophils (%) (Auto) 92.8 H 37.0-80.0 % Lymphocytes (%) (Auto) 2.4 L 10.0-50.0 % Monocytes (%) (Auto) 4.3 0.0-12.0 % Eosinophils (%) (Auto) 0.0 0.0-7.0 % Basophils (%) (Auto) 0.5 0.0-2.0 % Neutrophils # (Auto) 16.1 H 1.6-8.6 10 ^3/uL Lymphocytes # (Auto) 0.4 0.4-5.4 10 ^3/uL Monocytes # (Auto) 0.7 0-1.3 10 ^3/uL Eosinophils # (Auto) 0 0-0.8 10 ^3/uL Basophils # (Auto) 0.1 0-0.2 10 ^3/uL Nucleated Red Blood Cells 0.0 % Sodium Level 141 136-145 mmol/L Potassium Level 3.8 3.5-5.1 mmol/L Chloride Level 100 98-107 mmol/L Carbon Dioxide Level 29 20-31 mmol/L Anion Gap 12 5-15 Blood Urea Nitrogen 27 H 9-23 mg/dL Creatinine 1.06 0.700-1.30 mg/dL Glomerular Filtration Rate Calc 79 >90 mL/min BUN/Creatinine Ratio 25.5 H 10.0-20.0 Serum Glucose 206 H 74-106 mg/dL Calcium Level 9.9 8.7-10.4 mg/dL Total Bilirubin 0.4 0.2-1.0 mg/dL Aspartate Amino Transferase (AST) 26 13-40 U/L Alanine Aminotransferase (ALT) 80 H 7-40 U/L Alkaline Phosphatase 125 H 46-116 U/L Total Protein 7.9 5.7-8.2 g/dL Albumin 4.6 3.2-4.8 g/dL Lipase 73 H 12-53 U/L POC Glucose 166 H 70-106 mg/dl Assessment/Plan Assessment/Plan Assessment and plan: # Abdominal pain with constant vomiting, rule out esophageal rupture - Patient was complaining of 2 days of abdominal pain with nausea and vomiting - On admission patient was tachycardic with elevated WBC count and left shift - CT abdomen pelvis revealed free air adjacent to the mid esophagus and finding concerning for esophageal rupture due to forceful vomiting. - IV ceftriaxone 1 g daily and IV metronidazole 500 mg t.i.d. - IV Zosyn 4.5 mg once. - IV pantoprazole 80 mg once. - Patient needs to be transported higher level of care for Thoracic surgery Plan discussed with Dr. Sanchez Plan discussed with: Patient, Other My Orders Orders - IRAJ MCCOY RESIDENT Procedure Category Date Status Time Admit ADMIT 01/07/24 Transmitted 20:19 Allergies SCOTT 01/07/24 In Process 20:19 Code Status CODE 01/07/24 Transmitted 20:19 Sodium Chloride Lock PHA 01/07/24 In Process (Saline Lock Ns) 22:00 Oxygen Per Hour RT 01/07/24 Transmitted 20:19 Hydrocodone-Acet PHA 01/07/24 In Process 5/325mg Tab ([place] 20:30 Ondansetron Hcl PHA 01/07/24 In Process (Zofran) 20:30 Complete Blood Count LAB 01/08/24 Verified 04:00 Comprehensive LAB 01/08/24 Verified Metabolic Panel 04:00 Npo (Nothing By DIET 01/08/24 Transmitted Mouth) Diet Breakfast Morphine Sulfate PHA 01/07/24 In Process Injection 20:30 Nitroglycerin PHA 01/07/24 In Process Sublingual (Ntrostat 20:30 Morphine Sulfate PHA 01/07/24 In Process Injection 20:30 Oxygen By Nasal RT 01/07/24 Transmitted Cannula 20:19 Stat Ekg For Chest SCOTT 01/07/24 In Process Pain 20:19 Notify Of Changes SCOTT 01/07/24 In Process From Base 20:19 Coach Wirer For [facility] 01/07/24 In Process 24 Hours 20:19 Emergency Dysrhythmia [facility] 01/07/24 In Process Protocol 20:19 Rhythm Strips Once [facility] 01/07/24 In Process Every Shift 20:19 Sodium Chloride 0.9% PHA 01/07/24 Logged 21:[address] Pelvis W CT 01/07/24 Logged Con-Oral & Iv 21:34 Lactic Acid W/ Reflex LAB 01/07/24 Transmitted Order 21:34 Hemoglobin A1c LAB 01/07/24 Transmitted 21:34 Thyroid Stimulating LAB 01/07/24 Transmitted Hormone 21:34 Vitamin B12 LAB 01/07/24 Transmitted 21:34 Vitamin D, 25-Hydroxy LAB 01/07/24 Transmitted 21:34 Ceftriaxone 1gm/50ml PHA 01/08/24 Logged D5w (Rocephin) 09:00 Metronidazole PHA 01/07/24 Logged 500mg/100ml (Flagyl 22:00 Urinalysis LAB 01/07/24 Uncollected 21:34 Date of Service: Jan 07, 2024 Billing Provider: MATTY SANCHEZ MD Common Visit Codes: 23328-AJPANTI INP/OBS CARE (HIGH) IRAJ MCCOY RESIDENT Jan 07, 2024 21:39 MATTY SANCHEZ MD Jan 08, 2024 12:54
[2024-01-07] MEDS: MORPHINE SULFATE INJ 2 MG/ml SYRG IV PRN (21:42)
[2024-01-07] MEDS: metroNIDAZOLE 500MG/100ML 100 ML IV SCH (22:18)
[2024-01-07] MEDS: IOHEXOL 300 MG/ML 100ML BOTTLE IJ ONE (22:22)
[2024-01-07] MEDS: GASTROGRAFIN 30 ML SOL ONE (22:33)
--- NOTE | 2024-01-08 00:33 | DVH ---
Exam: CT CT ABD PELVIS W CON-ORAL IV History: Abdominal pain Comparison Study: None available at time of dictation. Technique: Multidetector spiral CT of the abdomen and pelvis was performed from lung bases to pubic s ymphysis. Intravenous contrast was administered during this examination. Portal venous imaging was obtained. Axial, coronal and sagittal multiplanar reformats were performed by the technologist on a separate workstation. Radiation Dose : 1. Abdomen/Pelvis: CTDIvol 8 mGy, DLP 503 mGy*cm. Findings: Lung Bases: Small and trace left-sided pleural effusion. Liver: The liver is normal in size. No focal lesions. Normal hepatic vascular enhancement. Gallbladder and Biliary Tree: Cholelithiasis within a distended gallbladder demonstrating mild wall t hickening. Spleen: Unremarkable Pancreas: The pancreas is normal in appearance without focal lesions or abnormal enhancement. Adrenal Glands: Unremarkable Kidneys: Kidneys demonstrate normal symmetric enhancement without focal lesions, calculi or hydroneph rosis. Bladder: Unremarkable Bowel: Hernia. Small hiatal hernia with foci of air centered around the herniated stomach within the cavity . This extends inferiorly to the retroperitoneum adjacent to the celiac axis and superiorly ad jacent to the mid esophagus. The stomach is grossly normal in appearance. Multiple nondilated fluid-f illed loops of small bowel.. The appendix is not visualized; however, no secondary findings of acute appendicitis identified. Ascites: Absent Lymphadenopathy: No mesenteric, retroperitoneal or periportal lymphadenopathy. Abdominal Wall and Mesentery: Unremarkable. Vasculature: The visualized abdominal aorta is normal in size and caliber. Abdominal and pelvic vess els demonstrate normal enhancement. Pelvic Organs: Moderate prostatomegaly. Musculoskeletal: No aggressive focal bony lesions, acute fractures or dislocation. IMPRESSION: Small hiatal hernia with adjacent free air which extends inferiorly to the celiac axis and superiorly adjacent to the mid esophagus. Findings are concerning for possible boerhaave syndrome, esophageal r upture secondary to forceful vomiting. Correlation with history recommended. Critical findings were discussed with patient's nurse, Billie, via telephone on January 08, 2024 at 12:29 a.m. PST. Cholelithiasis with distended gallbladder and mild wall thickening concerning for acute cholecystitis . Recommend confirmation with ultrasound. Small right and trace left-sided pleural effusions.
[2024-01-08] MEDS: PIPERACILLIN-TAZO 4.5GM 100 ML IV ONE (01:01)
[2024-01-08] MEDS: PANTOPRAZOLE 40 MG/10 ML VIAL INJ IV ONE (01:01)
[2024-01-08 01:47] LABS: Urine Bacteria FEW /hpf (None Seen); Urine Blood TRACE /uL (Negative); Urine Clarity Turbid (Clear); Urine Color Yellow (Yellow); Urine Hyaline Cast MANY /lpf (0 - 2); Urine Mucus FEW (None Seen); Urine Protein, UAD 1+ (Negative); Urine Specific Gravity 1.046 (1.001-1.035); Urine Urobilinogen Normal (Negative); Urine WBC 9 /hpf (0 - 3); Urine pH 5.5 (5.0-9.0)
[2024-01-08 01:48] LABS: Amphetamine Screen, Urine Neg (NEGATIVE); Barbiturate Scree,Urine Neg (NEGATIVE); Benzodiazephine Screen, Urine Neg (NEGATIVE); Cocaine Screen, Urine Neg (NEGATIVE); Opiate Scree,Urine Pos (NEGATIVE); Phencyclidine Screen, Urine Neg (NEGATIVE)
[2024-01-08 01:49] LABS: Cannabinoid Screen, Urine Neg (NEGATIVE)
--- NOTE | 2024-01-08 02:44 | ED.PDOC ---
Departure 1 Departure Time of Disposition: 02:43 (I was made available after the fact that patient has a ruptured esophagus. Patient is ill-appearing I covered patient empirically broad-spectrum antibiotics and discuss with rashad who accepted the patient as an emergent transfer for thoracic surgery.) Impression: Primary Impression: Esophageal rupture Additional Impressions: Intractable abdominal pain Elevated lipase Disposition: 02 SHORT TERM HOSPITAL Admit to: Med Surg Condition: Critical Critical Care Note Critical Care Time?: Yes Critical care comment: Esophageal rupture Authorized and Performed by: Liban Mcgee MD Total critical care time: Approximately 96 minutes Due to a high probability of clinically significant, life threatening deterioration, the patient required my highest level of preparedness to intervene emergently and I personally spent this critical care time directly and personally managing the patient. This critical care time included obtaining a history; examining the patient; pulse oximetry; ordering and review of studies; arranging urgent treatment with development of a management plan; evaluation of patient's response to treatment; frequent reassessment; and, discussions with other providers. This critical care time was performed to assess and manage the high probability of imminent, life-threatening deterioration that could result in multi-organ failure. It was exclusive of separately billable procedures and treating other patients and teaching time. Please see my other sections and the rest of the note for further information on patient assessment and treatment. LIBAN MCGEE MD Jan 08, 2024 02:44
[2024-01-08 06:24] LABS: Alanine Aminotransferase 62 U/L (7-40); Albumin 4.1 g/dL (3.2-4.8); Alkaline Phosphatase 112 U/L (46-116); Anion Gap 17 (5-15); Aspartate Aminotransferase 30 U/L (13-40); BUN/Creatinine Ratio 19.3 (10.0-20.0); Blood Urea Nitrogen 31 mg/dL (9-23); Calcium 9.5 mg/dL (8.7-10.4); Chloride 104 mmol/L (98-107); Potassium 5.3 mmol/L (3.5-5.1)
[2024-01-08 06:25] LABS: Bilirubin, Total 0.5 mg/dL (0.2-1.0); Total Protein 7.8 g/dL (5.7-8.2)
[2024-01-08 06:33] LABS: Carbon Dioxide 12 mmol/L (20-31); Glucose 337 mg/dL (74-106); Sodium 133 mmol/L (136-145)
[2024-01-08 06:47] LABS: Basophils # (auto) 0 10 ^3/uL (0-0.2); Basophils % (auto) 0.2 % (0.0-2.0); Eosinophils # (auto) 0 10 ^3/uL (0-0.8); Hematocrit 45.5 % (41.0-53.0); Hemoglobin 13.7 g/dL (13.5-17.5); Lymphocytes # (auto) 0.3 10 ^3/uL (0.4-5.4); Lymphocytes % (auto) 2.3 % (10.0-50.0); Mean Corpuscular Hgb Conc. 30.1 g/dL (32.0-36.0); Mean Corpuscular Volume 102.9 fL (80.0-100.0); Monocytes # (auto) 0.9 10 ^3/uL (0-1.3); Monocytes % (auto) 6.7 % (0.0-12.0); Neutrophils # (auto) 11.6 10 ^3/uL (1.6-8.6); Neutrophils % (auto) 90.8 % (37.0-80.0); Platelet Count (auto) 503 10^3/uL (140-450); Red Blood Cells 4.42 10^6/uL (4.5-5.90); Red Cell Distribution Width 16.9 % (11.8-14.3); White Blood Cell 12.8 10^3/uL (4.4-10.8)
[2024-01-08 07:02] LABS: Lactic Acid w/Reflex 4.7 mmol/L (0.4-2.0)
[2024-01-08] MEDS: SODIUM CHLORIDE 0.9% 1,000 ML IV ONE (07:37)
[2024-01-08] MEDS: PANTOPRAZOLE 40mg/50ML NS AE 50 ML IV SCH (08:15)
[2024-01-08 08:51] VITALS: BP 113/85; PULSE 124; RESP 28; O2SAT 97
[2024-01-08] MEDS: cefTRIAXone 1GM/50ML D5W 50 ML IV SCH (09:00)
== END 2024-01-08 08:30 | disposition short-term general hospital (02) | DRG 242 ==
LOC: ER 17:32 → OVERFLOW 20:19
PROVIDERS: ATTEND Surgery
DX: K22.3 Perforation of esophagus (principal); E11.9 Type 2 diabetes mellitus without complications; E78.5 Hyperlipidemia, unspecified; I25.10 Atherosclerotic heart disease of native coronary artery without angina pectoris; I10 Essential (primary) hypertension; I25.2 Old myocardial infarction; Z87.891 Personal history of nicotine dependence; Z87.11 Personal history of peptic ulcer disease; Z79.4 Long term (current) use of insulin; Z79.899 Other long term (current) drug therapy
CPT/HCPCS: 36415; 74177; 76705; 80053; 80307; 81001; 82306; 82607; 82962; 83036; 83605; 83690; 84443; 85025; 99291; 99292; G0378; J2405; J2470; J2543; J3490